=== PATIENT | female | born 1955 | race Hispanic/Latino ===

== ENCOUNTER 2019-03-29 22:16 | Emergency (ER) | payer OTHER ==
--- OUTSIDE RECORDS SUMMARY | 2019-03-29 22:17 | XMS REPORT | Clinical Summary ---
:1955 Author Organization [facility] Address [address] [place] [address] Care Team Providers Name Role Phone Patrick Cooley DO Primary Care Provider Allergies No Known Allergies Medications Medication Sig Dispensed Refills Start Date End Date Status pravastatin (PRAVACHOL) Take 40 mg by 0 Active 40 MG tablet mouth daily. gabapentin (NEURONTIN) Take 300 mg by 0 Active 300 mg capsule mouth 3 (three) times a day. lisinopril Take 40 mg by 0 Active (PRINIVIL,ZESTRIL) 40 mouth daily. mg tablet HYDROcodone-acetaminoph 0 11/02/2016 Active en (NORCO) 5-325 mg per tablet Hospital, Clinic, or Other Ordered Dose Route Frequency Start Date End Date Status Facility Administered Medication ibuprofen (ADVIL,MOTRIN) 600 mg oral once 11/03/2016 Active tablet 600 mgIndications: Varicose veins of leg with pain, right, Edema of right lower extremity Active Problems Problem Noted Date Varicose veins of leg with pain 11/09/2016 Edema of right lower extremity 11/09/2016 Family History Medical History Relation Name Comments Diabetes Mother Hypertension Mother Varicose Veins Mother Relation Name Status Comments Mother Social History Tobacco Use Types Packs/Day Years Used Date Never Smoker Alcohol Use Drinks/Week oz/Week Comments No Sex Assigned at Date Recorded Not on file Job Start Date Occupation Industry Not on file Not on file Not on file Travel History Travel Start Travel End No recent travel history available. Last Filed Vital Signs Not on file Plan of Treatment Health Maintenance Due Date Last Done Comments BREAST CANCER SCREENING 2003 COLONOSCOPY SCREENING 2003 SHINGLES VACCINES (#1) 2003 65+ PNEUMOCOCCAL VACCINE (1 of 2 - PCV13) 2018 INFLUENZA VACCINE 04/03/2019 Results Not on fileafter 03/28/2018 ) [place] [address] Advance Directives Patient has advance care planning documents on file. For more information, please contact:Zachery Rodriguez[address] [place] [phone]
--- OUTSIDE RECORDS SUMMARY | 2019-03-29 22:18 | XMS REPORT ---
:1955 [facility] Address [address] [place] [address] Care Team Providers Name Role Phone Unavailable Unavailable Unavailable Problems This patient has no known problems. Allergies, Adverse Reactions, Alerts This patient has no known allergies or adverse reactions. Medications This patient has no known medications.
[2019-03-29 22:53] LABS: Absolute Lymphocytes (CBC) 2.8 K/uL (0.7-4.9); Basophils % 0.3 % (0-1.3); Lymphocytes % 26.9 % (15.3-44.8); MPV 9.8 fL (7.6-11.3); RBC Red Blood Cell Count 4.51 M/uL (3.86-4.86)
[2019-03-29 23:12] LABS: BUN Blood Urea Nitrogen 18 mg/dL (7-18); Bicarbonate 28 mmol/L (21-32); Glucose Level 123 mg/dL (74-106); NT PRO-BNP 26 pg/mL (<125); Potassium 3.7 mmol/L (3.5-5.1); Sodium Level 142 mmol/L (136-145); Troponin (Emerg Dept Use Only) < 0.02 ng/mL (0.0-0.045)
--- NOTE | 2019-03-30 00:38 | ER ---
Nurse's Notes [facility] Name: Sudha Sanchez Age: 63 yrs Sex: Female : 1955 Arrival Date: 03/29/2019 Time: 22:16 Bed 7 Private MD: Diagnosis: Chest pain, unspecified Presentation: 03/29 22:25 Presenting complaint: Patient states: she is having non-radiating chest pain for bb several days the pain was intermittent but now does not seem to be going away. Pt denies SOB, nausea, and states pain is 7/10. Pt recently lost her March 07, 2019. Transition of care: patient was not received from another setting of care. Onset of symptoms was March 27, 2019. Risk Assessment: Do you want to hurt yourself or someone else? Patient reports no desire to harm self or others. Initial Sepsis Screen: Does the patient meet any 2 criteria? No. Patient's initial sepsis screen is negative. Does the patient have a suspected source of infection? No. Patient's initial sepsis screen is negative. Care prior to arrival: None. 22:25 Method Of Arrival: Ambulatory bb 22:25 Acuity: MINH 3 bb Triage Assessment: 22:27 General: Appears in no apparent distress. Behavior is calm, cooperative. Pain: bb Complains of pain in chest Pain does not radiate. Pain currently is 7 out of 10 on a pain scale. Pain began 2-3 days ago. Is continuous. Neuro: Level of Consciousness is awake, alert, obeys commands, Oriented to person, place, time, situation. Cardiovascular: Heart tones S1 S2 present Capillary refill < 3 seconds Patient's skin is warm and dry. Respiratory: Airway is patent Respiratory effort is even, unlabored, Respiratory pattern is regular, Breath sounds are clear bilaterally. GI: No signs and/or symptoms were reported involving the gastrointestinal system. Derm: Skin is dry, Skin is normal, Skin temperature is warm. Musculoskeletal: Circulation, motion, and sensation intact. Historical: - Allergies: : No Known Allergies; bb - Home Meds: : Unable to obtain [Active]; bb - PMHx: : Hypertension; bb - PSHx: : bunion surgery; bb - Immunization history:: Adult Immunizations up to date. - Social history:: Smoking status: Patient/guardian denies using tobacco. - Ebola Screening: : No symptoms or risks identified at this time. - Family history:: not pertinent. - Hospitalizations: : No recent hospitalization is reported. Screenin:54 Abuse screen: Denies threats or abuse. Denies injuries from another. Nutritional rr5 screening: No deficits noted. Tuberculosis screening: No symptoms or risk factors identified. Fall Risk IV access (20 points). Total Mendoza Fall Scale indicates No Risk (0-24 pts). Assessment: 22:30 General: Appears in no apparent distress. uncomfortable, Behavior is calm, cooperative, rr5 appropriate for age. Pain: Complains of pain in chest Pain does not radiate. Pain currently is 7 out of 10 on a pain scale. Quality of pain is described as aching, Pain began gradually, Is intermittent. Neuro: Level of Consciousness is awake, alert, obeys commands, Oriented to person, place, time, situation, Appropriate for age. Cardiovascular: Reports chest pain, Capillary refill < 3 seconds Patient's skin is warm and dry. Respiratory: Airway is patent Respiratory effort is even, unlabored, Respiratory pattern is regular, symmetrical. GI: No signs and/or symptoms were reported involving the gastrointestinal system. : No signs and/or symptoms were reported regarding the genitourinary system. EENT: No signs and/or symptoms were reported regarding the EENT system. Derm: Skin is intact, Skin temperature is warm. Musculoskeletal: Circulation, motion, and sensation intact. Capillary refill < 3 seconds. 23:52 Reassessment: No changes from previously documented assessment. Patient is alert, bb oriented x 3, equal unlabored respirations, skin warm/dry/pink. pt states pain is a little less now 6/10, IV site intact, family at bedside. 03/30 00:40 Reassessment: Patient is alert, oriented x 3, equal unlabored respirations, skin bb warm/dry/pink. pt and family verbalized understanding of and agree to plan of care discharge instructions given pt ambulated with steady gait to exit accompanied by family. Vital Signs: 03/29 22:27 BP 119 / 89; Pulse 87; Resp 18 S; Temp 97.7(O); Pulse Ox 96% on R/A; Weight 83.91 kg bb (R); Height 5 ft. 0 in. (152.40 cm) (R); Pain 7/10; 23:53 BP 122 / 62; Pulse 77; Resp 16 S; Pulse Ox 97% on R/A; bb 03/30 00:41 BP 145 / 81; Pulse 83; Resp 21 S; Temp 98(O); Pulse Ox 96% on R/A; bb 03/29 22:27 Body Mass Index 36.13 (83.91 kg, 152.40 cm) bb ED Course: 03/29 22:16 Patient arrived in ED. rg4 22:23 Mike Narvaez MD is Attending Physician. rn 22:27 Triage completed. bb 22:27 Arm band placed on Patient placed in an exam room, on a stretcher, on quality assurance monitor body, bb on pulse oximetry. EKG completed in triage. Results shown to MD. Family accompanied patient. 22:30 Patient has correct armband on for positive identification. monitoring tech on. Pulse bb ox on. NIBP on. 22:30 Patient maintains SpO2 saturation greater than 95% on room air. bb 22:35 Inserted saline lock: 20 gauge in right forearm, using aseptic technique. Blood rr5 collected. 22:44 Hattie Gardner, RN is Primary Nurse. bb 22:50 XRAY Chest (1 view) In Process Unspecified. EDMO 03/30 00:42 No provider procedures requiring assistance completed. IV discontinued, intact, bb bleeding controlled, No redness/swelling at site. Pressure dressing applied. Administered Medications: No medications were administered Outcome: 00:33 Discharge ordered by . rn 00:42 Discharged to home ambulatory, with family. bb 00:42 Condition: stable 00:42 Discharge instructions given to patient, family, Instructed on discharge instructions, follow up and referral plans. Demonstrated understanding of instructions, follow-up care. 00:43 Patient left the ED. bb Signatures: Dispatcher [employer] EDMO Hattie Gardner, RN Mike Rojas MD MD rn Garcia, Rubi rg4 Vishal Loera RN RN rr5
--- NOTE | 2019-03-30 00:39 | EDPHYS ---
Physician Documentation [facility] Name: Sudha Sanchez Age: 63 yrs Sex: Female : 1955 Arrival Date: 03/29/2019 Time: 22:16 Bed 7 Private MD: ED Physician Mike Narvaez HPI: 03/29 23:20 This 63 yrs old Female presents to ER via Ambulatory with complaints of Chest rn Pain. 23:20 The patient or guardian reports chest pain that is located primarily in the substernal rn area. Onset: 2 week(s) ago. The pain does not radiate. Associated signs and symptoms: The patient has no apparent associated signs or symptoms, Pertinent negatives: abdominal pain, diaphoresis, dizziness, headache, lightheadedness, nausea, near syncope, palpitations, shortness of breath, syncope, vomiting. The chest pain is described as dull. Duration: The patient or guardian reports multiple episodes, that are intermittent, the episodes last approximately 2 minute(s). Modifying factors: The symptoms are alleviated by nothing. the symptoms are aggravated by nothing. Severity of pain: At its worst the pain was mild in the emergency department the pain is unchanged. The patient has not experienced similar symptoms in the past. Reports has been having chest pain since this month, 2 weeks onset, intermittent, increase in frequency, no fever/chills/sob, no radiation, no abd pain. NO vomiting/diaphoresis. . Historical: - Allergies: 22:27 No Known Allergies; bb - Home Meds: 22:27 Unable to obtain [Active]; bb - PMHx: 22:27 Hypertension; bb - PSHx: 22:27 bunion surgery; bb - Immunization history:: Adult Immunizations up to date. - Social history:: Smoking status: Patient/guardian denies using tobacco. - Ebola Screening: : No symptoms or risks identified at this time. - Family history:: not pertinent. - Hospitalizations: : No recent hospitalization is reported. ROS: 23:20 Constitutional: Negative for fever, chills, and weight loss, Eyes: Negative for injury, rn pain, redness, and discharge, Neck: Negative for injury, pain, and swelling, Cardiovascular: Negative for palpitations, and edema, Respiratory: Negative for shortness of breath, cough, wheezing, and pleuritic chest pain, Abdomen/GI: Negative for abdominal pain, nausea, vomiting, diarrhea, and constipation, MS/Extremity: Negative for injury and deformity, Skin: Negative for injury, rash, and discoloration, Neuro: Negative for headache, weakness, numbness, tingling, and seizure. Exam: 23:20 Constitutional: This is a well developed, well nourished patient who is awake, alert, rn and in no acute distress. Flat affect. Head/Face: Normocephalic, atraumatic. Eyes: Pupils equal round and reactive to light, extra-ocular motions intact. Lids and lashes normal. Conjunctiva and sclera are non-icteric and not injected. Cornea within normal limits. Periorbital areas with no swelling, redness, or edema. Cardiovascular: Regular rate and rhythm. No pulse deficits. Respiratory: Lungs have equal breath sounds bilaterally, clear to auscultation. No increased work of breathing, no retractions or nasal flaring. Abdomen/GI: soft, non-tender MS/ Extremity: Pulses equal, no cyanosis. Neurovascular intact. Full, normal range of motion. Equal circumference. Neuro: Awake and alert, GCS 15, oriented to person, place, time, and situation. Cranial nerves II-XII grossly intact. Motor strength 5/5 in all extremities. Sensory grossly intact. Cerebellar exam normal. Vital Signs: 22:27 BP 119 / 89; Pulse 87; Resp 18 S; Temp 97.7(O); Pulse Ox 96% on R/A; Weight 83.91 kg bb (R); Height 5 ft. 0 in. (152.40 cm) (R); Pain 7/10; 23:53 BP 122 / 62; Pulse 77; Resp 16 S; Pulse Ox 97% on R/A; bb 03/30 00:41 BP 145 / 81; Pulse 83; Resp 21 S; Temp 98(O); Pulse Ox 96% on R/A; bb 03/29 22:27 Body Mass Index 36.13 (83.91 kg, 152.40 cm) bb MDM: 03/29 22:24 Patient medically screened. rn 03/30 00:31 Differential diagnosis: acute myocardial infarction, acute pericarditis, anxiety, rn coronary artery disease esophagitis, gastritis, gastroesophageal reflux disease (GERD). Data reviewed: vital signs, nurses notes, lab test result(s), EKG, radiologic studies, plain films, and as a result, I will discharge patient. Counseling: I had a detailed discussion with the patient and/or guardian regarding: the historical points, exam findings, and any diagnostic results supporting the discharge/admit diagnosis, lab results, radiology results, the need for outpatient follow up, to return to the emergency department if symptoms worsen or persist or if there are any questions or concerns that arise at home. Refusal of service: The patient/guardian displays adequate decision making capability and despite a detailed discussion of alternatives, benefits, risks, and consequences refuses: Admission to the hospital for further work-up and treatment. ED course: Discussed with patient her normal results of bloodwork, neg trop, no acute findings on w/u today. Offered her admission for stress test and echo, patient declines, has pcp f/u on Sunday and she feels since began after of is more anxiety. Denies palpitations. Requests to go home. Return precautions given and understood.. 03/29 22:30 Order name: Basic Metabolic Panel; Complete Time: 23:19 rn 03/29 22:30 Order name: CBC with Diff; Complete Time: 23:19 03/29 22:30 Order name: NT PRO-BNP; Complete Time: 23:19 03/29 22:30 Order name: Troponin (emerg Dept Use Only); Complete Time: 23:19 03/29 22:30 Order name: XRAY Chest (1 view) 03/29 22:30 Order name: EKG; Complete Time: 22:32 03/29 22:30 Order name: Cardiac monitoring; Complete Time: 22:30 03/29 22:30 Order name: EKG - Nurse/Tech; Complete Time: 22:30 rn 03/29 22:30 Order name: IV Saline Lock; Complete Time: 22:44 03/29 22:30 Order name: Labs collected and sent; Complete Time: :44 03/29 22:30 Order name: O2 Per Protocol; Complete Time: :44 03/29 22:30 Order name: O2 Sat Monitoring; Complete Time: 22:44 rn Administered Medications: No medications were administered Disposition: 03/30/19 00:33 Discharged to Home. Impression: Chest pain, unspecified. - Condition is Stable. - Discharge Instructions: Nonspecific Chest Pain, Pain Without a Known Cause. - Medication Reconciliation Form, Thank You Letter, Antibiotic Education, Prescription Opioid Use form. - Follow up: Private Physician; When: As needed; Reason: Recheck today's complaints, Re-evaluation by your physician. - Problem is an ongoing problem. - Symptoms have improved. Signatures: Dispatcher [employer] Hattie Coelho RN RN bb Mike Narvaez MD MD internal medicine nurse practitioner: (The following items were deleted from the chart) 00:43 00:33 03/30/2019 00:33 Discharged to Home. Impression: Chest pain, unspecified. bb Condition is Stable. Forms are Medication Reconciliation Form, Thank You Letter, Antibiotic Education, Prescription Opioid Use. Follow up: Private Physician; When: As needed; Reason: Recheck today's complaints, Re-evaluation by your physician. Problem is an ongoing problem. Symptoms have improved. rn
[2019-03-30 01:47] VITALS: BP 145/81; TEMP 98; O2SAT 96
--- NOTE | 2019-03-30 06:28 | EKG ---
Test Date: 2019-03-29 Test Time: 22:29:15 Heavy Duty Press Operator: COLTEN MEASUREMENT RESULTS: Intervals: Rate: 83 NJ: 158 QRSD: 70 QT: 354 QTc: 415 [place]: P: 54 NJ: 158 QRS: 50 T: 79 INTERPRETIVE STATEMENTS: Normal sinus rhythm Nonspecific T wave abnormality Abnormal ECG No previous ECG available for comparison Electronically Signed On 03-30-19 06:27:29 CDT by Sanford Ley
--- NOTE | 2019-03-30 08:07 | RAD REPORT ---
EXAM DESCRIPTION: RAD - Chest Single View - 03/29/2019 10:49 pm CLINICAL HISTORY: Chest pain COMPARISON: None. TECHNIQUE: AP portable chest image was obtained 2249 hours . FINDINGS: Lungs are clear. Heart and vasculature are normal. No measurable pleural effusion and no p neumothorax. No acute bone findings seen. Mild left-side and moderate right-sided AC joint degenerati ve change. No acute aortic findings suspected. IMPRESSION: No acute cardiopulmonary process.
== END 2019-03-30 00:43 | disposition home or self-care (01) ==
LOC: ER 22:16
DX: R07.9 Chest pain, unspecified (principal); I10 Essential (primary) hypertension
CPT/HCPCS: 36415; 71045; 80048; 83880; 84484; 85025; 93005; 99285

== ENCOUNTER 2019-06-18 13:00 | Emergency (ER) | payer OTHER ==
--- NOTE | 2019-06-18 13:42 | ER ---
Nurse's Notes [facility] Name: Sudha Sanchez Age: 63 yrs Sex: Female : 1955 Arrival Date: 06/18/2019 Time: 13:04 Bed Waiting Private MD: Diagnosis: Presentation: 06/18 13:34 Presenting complaint: Patient states: Via translation # [id number]: "I'm having lots of aj1 cough and a bunch of phlegm, this has been going on for 6 months." Reports that she had a X-Ray done,f and they called and said they had results at the [facility], but she was already here so she isn't sure what the result is. States that she has not tried to take any cough medications at home. During triage patient states that she has decided that she would rather follow up at the clinic and she is leaving. Transition of care: patient was not received from another setting of care. Onset of symptoms was June 18, 2019. Risk Assessment: Do you want to hurt yourself or someone else? Patient reports no desire to harm self or others. Initial Sepsis Screen: Does the patient meet any 2 criteria? No. Patient's initial sepsis screen is negative. Does the patient have a suspected source of infection? Yes: Productive cough/pneumonia. Care prior to arrival: None. 13:34 Method Of Arrival: Ambulatory aj1 13:34 Acuity: MINH 4 aj1 Vital Signs: 13:40 BP 143 / 58; Pulse 72; Resp 18; Temp 97.8; Pulse Ox 100% on R/A; aj1 ED Course: 13:04 Patient arrived in ED. mr 13:40 Triage completed. aj1 Administered Medications: No medications were administered Outcome: 13:40 Eloped from waiting room. aj1 13:41 Patient left the ED. aj1 Signatures: Farnaz Patel RN RN aj1 Verito Gasca mr
[2019-06-18 13:45] VITALS: BP 143/58; TEMP 97.8; O2SAT 100
== END 2019-06-18 13:41 | disposition left against medical advice (07) ==
LOC: ER 13:00
DX: Z02.9 Encounter for administrative examinations, unspecified (principal)
CPT/HCPCS: 99281

== ENCOUNTER 2021-08-25 16:24 | Emergency (ER) | payer OTHER ==
--- OUTSIDE RECORDS SUMMARY | 2021-08-25 16:29 | XMS REPORT | Continuity of Care Document ---
:1955 Author Organization [facility] t Address [address] [place] [address] Care Team Providers Name Role Phone ENRIQUE ANN LINNETTE Primary Care Physician Unavailable Soledad ANDERSON Attending Clinician Unavailable Tomasa Avilez Attending Clinician Tomasa EASTON Attending Clinician Unavailable SARAH Attending Clinician Unavailable Tesha Attending Clinician Sarah ANDERS Attending Clinician Macey ANDERS Attending Clinician LORENZO Attending Clinician Unavailable Anupama REYNA Attending Clinician Unavailable Doctor Unassigned, Name Attending Clinician Unavailable Lorenzo IBRAHIM Attending Clinician Anupama Reyna MD Attending Clinician Tl ANDERS Attending Clinician Payers Payer Name Policy Type Policy Number Effective Date Expiration Date Tomasa jules [employer] [id number] 2020spring 00:00:00 MEDICARE PART A [id number] 2018 \\T\\ B 00:00:00 Problems Condition Condition Condition Status Onset Resolution Last Treating Co mments Source Name Details Category Date Date Treatment Clinician Date Depression Depression Disease Active 2018-09 U nivers 09-17 ity of 00:00: [place] 00 Medical Branch Osteopenia Osteopenia Disease Active U nivers 8-09 ity of 00:00: [place] [facility] Morbid Morbid Disease Active Univers obesity obesity 8-05 ity of with body with body 00:00: [facility] s mass index mass index 00 Me dical of of Branch 40.0-49.9 40.0-49.9 Chronic Chronic Disease Active Univers allergic allergic 4-25 ity of rhinitis rhinitis 00:00: [place] [facility] Dry eyes Dry eyes Disease Active Unive rs 3-10 ity of 00:: [place] [facility] Abnormal Abnormal Disease Active Unive rs EKG EKG 3-06 ity of 00:00: [place] [facility] Microscopi Microscopi Disease Active U nivers c c 3- ity of hematuria hematuria 00:00: [facility] Medical Branch Elevated Elevated Disease Active Unive rs sed rate sed rate 3- ity of 00:: [place] [facility] Elevated Elevated Disease Active Unive rs C-reactive C-reactive 3- it y of protein protein 00:00: [place] (CRP) (CRP) 00 Medical Branch Proximal Proximal Disease Active Unive rs muscle muscle 3- ity of weakness weakness 00:00: [place] [facility] Arthralgia Arthralgia Disease Active U nivers of of 3- ity of multiple multiple 00:00: [place] joints joints 00 Medical Branch Vitamin D Vitamin D Disease Active Uni vers deficiency deficiency 3- it y of 00:00: [place] [facility] Type 2 Type 2 Disease Active Univers diabetes diabetes 3- ity of mellitus mellitus 00:00: [place] without without 00 Medical complicati complicati Br anch on, on, without without long-term long-term current current use of use of insulin insulin Hyperchole Hyperchole Disease Active U nivers sterolemia sterolemia 3- it y of 00:00: [place] [facility] Allergies, Adverse Reactions, Alerts Allergy Allergy Status Severity Reaction(s) Onset Inactive Treating Comm ents Source Name Type Date Date Clinician NO KNOWN Drug Active Univers ALLERGIE Class ity of [facility] Social History Social Habit Start Date Stop Date Quantity Comments Source Exposure to Not sure [facility] SARS-CoV-2 [place] [facility] (event) Branch Tobacco use and 2021-02-25 2021-02-25 Never used Universit y of exposure 00:00:00 00:00:00 [facility] Branch Alcohol intake 2021-02-25 2021-02-25 Current University 00:00:00 00:00:00 non-drinker of [facility] alcohol Branch (finding) Sex [birth year] Universit y of 00:00:00 00:00:00 [facility] Branch Smoking Status Start Date Stop Date Source Never smoker [facility] Branch Medications Ordered Filled Start Stop Current Ordering Indication Dosage Frequency Signature Comments Components Source Medication Medication Date Date Medication? Clinician (SIG) Name Name triamcinolo 2020- No [id number] 40mg Univers ne 02-16 ity of acetonide 21:45: 20:36 [place] (KENALOG) 00 :00 Medical injection Branch 40 mg triamcinolo 2020- No [id number] 40mg 40 mg, Univers ne 02-16 Intra-herb ity of acetonide 21:45: 20:36 [place], [place] (KENALOG) 00 :00 ONCE, 1 Medical injection dose, Wed Branc h 40 mg 02/16/21 at 1645, Routine triamcinolo 2020- No [id number] 40mg Univers ne 02-16 ity of acetonide 21:45: 20:36 [place] (KENALOG) 00 :00 Medical injection Branch 40 mg triamcinolo 2020- No [id number] 40mg 40 mg, Univers ne 02-16 Intra-herb ity of acetonide 21:45: 20:36 [place], [place] (KENALOG) 00 :00 ONCE, 1 Medical injection dose, Wed Branc h 40 mg 02/16/21 at 1645, Routine tretinoin Yes [id number] Apply to Univers 0.025 % 6-16 affected ity of cream 00:00: area(s) at [place] 00 bedtime. Medical Branch tretinoin Yes [id number] Apply to Univers 0.025 % 6-16 affected ity of cream 00:00: area(s) at [place] 00 bedtime. Medical Branch tretinoin Yes [id number] Apply to Univers 0.025 % 6-16 affected ity of cream 00:00: area(s) at [place] bedtime. Medical Branch tretinoin Yes [id number] Apply to Univers 0.025 % 6-16 affected ity of cream 00:00: area(s) at [place] bedtime. Medical Branch tretinoin Yes [id number] Apply to Univers 0.025 % 6-16 affected ity of cream 00:00: area(s) at [place] bedtime. Medical Branch tretinoin Yes [id number] Apply to Univers 0.025 % 6-16 affected ity of cream 00:00: area(s) at [place] bedtime. Medical Branch tretinoin Yes [id number] Apply to Univers 0.025 % 6-16 affected ity of cream 00:00: area(s) at [place] [address] bedtime. Medical Branch tretinoin Yes [id number] Apply to Univers 0.025 % 6-16 affected ity of cream 00:00: area(s) at [place] [address] bedtime. Medical Branch Blood-Gluco 2018-09 Yes [id number] Check Univers se Meter 1-15 glucose ity of Kit 00:00: once a day [place] 00 before Medical breakfast, Branch goal is less than 130; Diagnosis code E11.9 blood sugar 2018-09 Yes [id number] Check Univers diagnostic 1-15 glucose ity of (BLOOD 00:00: once a day [place] GLUCOSE 00 before Medical TEST) strip breakfast, Br anch goal is less than 130; Diagnosis code E11.9 Lancets 2018-09 Yes [id number] Check Univ ers Misc 1-15 glucose ity of 00:00: once a day [place] 00 before Medical breakfast, Branch goal is less than 130; Diagnosis code E11.9 ciclopirox 2018-09 Yes [id number] Apply to Univers 8 % 1-15 area(s) at ity of solution 00:00: bedtime. [place] 00 Apply to Medical Nails. Branch rosuvastati 2018-09 Yes [id number] 10mg Take 1 Univers n 10 mg 1-15 tablet by ity of tablet 00:00: mouth at [place] [address] bedtime. Medical Branch traZODone 2018-09 Yes [id number] 25mg Take 0.5-1 Univers 50 mg 1-15 tablets by ity of tablet 00:00: mouth at [place] 00 bedtime. Medical Branch Blood-Gluco 2018-09 Yes [id number] Check Univers se Meter 1-15 glucose ity of Kit 00:00: once a day [place] 00 before Medical breakfast, Branch goal is less than 130; Diagnosis code E11.9 blood sugar 2018-09 Yes [id number] Check Univers diagnostic 1-15 glucose ity of (BLOOD 00:00: once a day [place] GLUCOSE 00 before Medical TEST) strip breakfast, Br anch goal is less than 130; Diagnosis code E11.9 Lancets 2018-09 Yes [id number] Check Univ ers Misc 1-15 glucose ity of 00:00: once a day [place] before Medical breakfast, Branch goal is less than 130; Diagnosis code E11.9 ciclopirox 2018-09 Yes [id number] Apply to Univers 8 % 1-15 area(s) at ity of solution 00:00: bedtime. [place] [address] Apply to Medical Nails. Branch rosuvastati 2018-09 Yes [id number] 10mg Take 1 Univers n 10 mg 1-15 tablet by ity of tablet 00:00: mouth at [place] [address] bedtime. Medical Branch traZODone 2018-09 Yes [id number] 25mg Take 0.5-1 Univers 50 mg 1-15 tablets by ity of tablet 00:00: mouth at [place] [address] bedtime. Medical Branch Blood-Gluco 2018-09 Yes [id number] Check Univers se Meter 1-15 glucose ity of Kit 00:00: once a day [place] before Medical breakfast, Branch goal is less than 130; Diagnosis code E11.9 blood sugar 2018-09 Yes [id number] Check Univers diagnostic 1-15 glucose ity of (BLOOD 00:00: once a day [place] GLUCOSE 00 before Medical TEST) strip breakfast, Br anch goal is less than 130; Diagnosis code E11.9 Lancets 2018-09 Yes [id number] Check Univ ers Misc 1-15 glucose ity of 00:00: once a day [place] 00 before Medical breakfast, Branch goal is less than 130; Diagnosis code E11.9 ciclopirox 2018-09 Yes [id number] Apply to Univers 8 % 1-15 area(s) at ity of solution 00:00: bedtime. [place] 00 Apply to Medical Nails. Branch rosuvastati 2018-09 Yes [id number] 10mg Take 1 Univers n 10 mg 1-15 tablet by ity of tablet 00:00: mouth at [place] [address] bedtime. Medical Branch traZODone 2018-09 Yes [id number] 25mg Take 0.5-1 Univers 50 mg 1-15 tablets by ity of tablet 00:00: mouth at [place] bedtime. Medical Branch Blood-Gluco 2018- Yes [id number] Check Univers se Meter 1-15 glucose ity of Kit 00:00: once a day [place] 00 before Medical breakfast, Branch goal is less than 130; Diagnosis code E11.9 blood sugar 2018-09 Yes [id number] Check Univers diagnostic 1-15 glucose ity of (BLOOD 00:00: once a day [place] GLUCOSE 00 before Medical TEST) strip breakfast, Br anch goal is less than 130; Diagnosis code E11.9 Lancets 2018-09 Yes [id number] Check Univ ers Misc 1-15 glucose ity of 00:00: once a day [place] before Medical breakfast, Branch goal is less than 130; Diagnosis code E11.9 ciclopirox 2018- Yes [id number] Apply to Univers 8 % 1-15 area(s) at ity of solution 00:00: bedtime. Apply to Medical Nails. Branch rosuvastati 2018-09 Yes [id number] 10mg Take 1 Univers n 10 mg 1-15 tablet by ity of tablet 00:00: mouth at [place] [address] bedtime. Medical Branch traZODone 2018-09 Yes [id number] 25mg Take 0.5-1 Univers 50 mg 1-15 tablets by ity of tablet 00:00: mouth at [place] [address] bedtime. Medical Branch Blood-Gluco 2018-09 Yes [id number] Check Univers se Meter 1-15 glucose ity of Kit 00:00: once a day [place] 00 before Medical breakfast, Branch goal is less than 130; Diagnosis code E11.9 blood sugar 2018-09 Yes [id number] Check Univers diagnostic 1-15 glucose ity of (BLOOD 00:00: once a day [place] GLUCOSE 00 before Medical TEST) strip breakfast, Br anch goal is less than 130; Diagnosis code E11.9 Lancets 2018- Yes [id number] Check Univ ers Misc 1-15 glucose ity of 00:00: once a day [place] 00 before Medical breakfast, Branch goal is less than 130; Diagnosis code E11.9 ciclopirox 2018-09 Yes [id number] Apply to Univers 8 % 1-15 area(s) at ity of solution 00:00: bedtime. [place] 00 Apply to Medical Nails. Branch rosuvastati 2018-09 Yes [id number] 10mg Take 1 Univers n 10 mg 1-15 tablet by ity of tablet 00:00: mouth at [place] 00 bedtime. Medical Branch traZODone 2018-09 Yes [id number] 25mg Take 0.5-1 Univers 50 mg 1-15 tablets by ity of tablet 00:00: mouth at [place] 00 bedtime. Medical Branch Blood-Gluco 2018-09 Yes [id number] Check Univers se Meter 1-15 glucose ity of Kit 00:00: once a day [place] before Medical breakfast, Branch goal is less than 130; Diagnosis code E11.9 blood sugar 2018-09 Yes [id number] Check Univers diagnostic 1-15 glucose ity of (BLOOD 00:00: once a day [place] GLUCOSE 00 before Medical TEST) strip breakfast, Br anch goal is less than 130; Diagnosis code E11.9 Lancets 2018-09 Yes [id number] Check Univ ers Misc 1-15 glucose ity of 00:00: once a day [place] before Medical breakfast, Branch goal is less than 130; Diagnosis code E11.9 ciclopirox 2018-09 Yes [id number] Apply to Univers 8 % 1-15 area(s) at ity of solution 00:00: bedtime. [place] 00 Apply to Medical Nails. Branch rosuvastati 2018-09 Yes [id number] 10mg Take 1 Univers n 10 mg 1-15 tablet by ity of tablet 00:00: mouth at [place] 00 bedtime. Medical Branch traZODone 2018-09 Yes [id number] 25mg Take 0.5-1 Univers 50 mg 1-15 tablets by ity of tablet 00:00: mouth at [place] 00 bedtime. Medical Branch Blood-Gluco 2018-09 Yes [id number] Check Univers se Meter 1-15 glucose ity of Kit 00:00: once a day [place] 00 before Medical breakfast, Branch goal is less than 130; Diagnosis code E11.9 blood sugar 2018-09 Yes [id number] Check Univers diagnostic 1-15 glucose ity of (BLOOD 00:00: once a day [place] GLUCOSE 00 before Medical TEST) strip breakfast, Br anch goal is less than 130; Diagnosis code E11.9 Lancets 2018-09 Yes [id number] Check Univ ers Misc 1-15 glucose ity of 00:00: once a day [place] 00 before Medical breakfast, Branch goal is less than 130; Diagnosis code E11.9 ciclopirox 2018-09 Yes [id number] Apply to Univers 8 % 1-15 area(s) at ity of solution 00:00: bedtime. Apply to Medical Nails. Branch rosuvastati 2018-09 Yes [id number] 10mg Take 1 Univers n 10 mg 1-15 tablet by ity of tablet 00:00: mouth at [place] 00 bedtime. Medical Branch traZODone 2018-09 Yes [id number] 25mg Take 0.5-1 Univers 50 mg 1-15 tablets by ity of tablet 00:00: mouth at [place] [address] bedtime. Medical Branch Blood-Gluco 2018-09 Yes [id number] Check Univers se Meter 1-15 glucose ity of Kit 00:00: once a day [place] 00 before Medical breakfast, Branch goal is less than 130; Diagnosis code E11.9 blood sugar 2018-09 Yes [id number] Check Univers diagnostic 1-15 glucose ity of (BLOOD 00:00: once a day [place] GLUCOSE 00 before Medical TEST) strip breakfast, Br anch goal is less than 130; Diagnosis code E11.9 Lancets 2018-09 Yes [id number] Check Univ ers Misc 1-15 glucose ity of 00:00: once a day [place] before Medical breakfast, Branch goal is less than 130; Diagnosis code E11.9 ciclopirox 2018-09 Yes [id number] Apply to Univers 8 % 1-15 area(s) at ity of solution 00:00: bedtime. Apply to Medical Nails. Branch rosuvastati 2018-09 Yes [id number] 10mg Take 1 Univers n 10 mg 1-15 tablet by ity of tablet 00:00: mouth at [place] [address] bedtime. Medical Branch traZODone 2018-09 Yes [id number] 25mg Take 0.5-1 Univers 50 mg 1-15 tablets by ity of tablet 00:00: mouth at [place] [address] bedtime. Medical Branch aspirin 81 Yes [id number] 81mg Take 1 Univers mg EC 7-29 tablet by ity of tablet 00:00: mouth [place] 00 daily. Medical Take with [place] food. rosuvastati Yes [id number] 10mg Take 1 Univers n 10 mg 7-29 tablet by ity of tablet 00:00: mouth at [place] 00 bedtime. Medical Branch traZODONE Yes [id number] 25mg Take 0.5-1 Univers 50 mg 7-29 tablets by ity of tablet 00:00: mouth at [place] 00 bedtime. Medical Branch aspirin 81 Yes [id number] 81mg Take 1 Univers mg EC 7-29 tablet by ity of tablet 00:00: mouth [place] 00 daily. Medical Take with [place] food. rosuvastati Yes [id number] 10mg Take 1 Univers n 10 mg 7-29 tablet by ity of tablet 00:00: mouth at [place] 00 bedtime. Medical Branch traZODONE Yes [id number] 25mg Take 0.5-1 Univers 50 mg 7-29 tablets by ity of tablet 00:00: mouth at [place] 00 bedtime. Medical [place] aspirin 81 Yes [id number] 81mg Take 1 Univers mg EC 7-29 tablet by ity of tablet 00:00: mouth [place] 00 daily. Medical Take with [place] food. rosuvastati Yes [id number] 10mg Take 1 Univers n 10 mg 7-29 tablet by ity of tablet 00:00: mouth at [place] 00 bedtime. Medical Branch traZODONE Yes [id number] 25mg Take 0.5-1 Univers 50 mg 7-29 tablets by ity of tablet 00:00: mouth at [place] 00 bedtime. Medical [place] aspirin 81 Yes [id number] 81mg Take 1 Univers mg EC 7-29 tablet by ity of tablet 00:00: mouth [place] 00 daily. Medical Take with [place] food. rosuvastati Yes [id number] 10mg Take 1 Univers n 10 mg 7-29 tablet by ity of tablet 00:00: mouth at [place] 00 bedtime. [facility] Branch traZODONE Yes [id number] 25mg Take 0.5-1 Univers 50 mg 7-29 tablets by ity of tablet 00:00: mouth at [place] 00 bedtime. Medical Branch aspirin 81 Yes [id number] 81mg Take 1 Univers mg EC 7-29 tablet by ity of tablet 00:00: mouth [place] 00 daily. Medical Take with [place] food. rosuvastati Yes [id number] 10mg Take 1 Univers n 10 mg 7-29 tablet by ity of tablet 00:00: mouth at [place] 00 bedtime. Medical Branch traZODONE Yes [id number] 25mg Take 0.5-1 Univers 50 mg 7-29 tablets by ity of tablet 00:00: mouth at [place] 00 bedtime. Medical Branch aspirin 81 Yes [id number] 81mg Take 1 Univers mg EC 7-29 tablet by ity of tablet 00:00: mouth [place] 00 daily. Medical Take with [place] food. rosuvastati Yes [id number] 10mg Take 1 Univers n 10 mg 7-29 tablet by ity of tablet 00:00: mouth at [place] 00 bedtime. Medical Branch traZODONE Yes [id number] 25mg Take 0.5-1 Univers 50 mg 7-29 tablets by ity of tablet 00:00: mouth at [place] 00 bedtime. Medical Branch aspirin 81 Yes [id number] 81mg Take 1 Univers mg EC 7-29 tablet by ity of tablet 00:00: mouth [place] 00 daily. Medical Take with [place] food. rosuvastati Yes [id number] 10mg Take 1 Univers n 10 mg 7-29 tablet by ity of tablet 00:00: mouth at [place] 00 bedtime. Medical Branch traZODONE Yes [id number] 25mg Take 0.5-1 Univers 50 mg 7-29 tablets by ity of tablet 00:00: mouth at [place] 00 bedtime. Medical Branch aspirin 81 Yes [id number] 81mg Take 1 Univers mg EC 7-29 tablet by ity of tablet 00:00: mouth [place] 00 daily. Medical Take with [place] food. rosuvastati Yes [id number] 10mg Take 1 Univers n 10 mg 7-29 tablet by ity of tablet 00:00: mouth at [place] 00 bedtime. Medical Branch traZODONE Yes [id number] 25mg Take 0.5-1 Univers 50 mg 7-29 tablets by ity of tablet 00:00: mouth at [place] 00 bedtime. Medical Branch aspirin 81 2019-0 Yes [id number] 81mg Take 1 Univers mg EC 7-29 tablet by ity of tablet 00:00: mouth [place] 00 daily. Medical Take with Branch food. rosuvastati 2019-0 Yes [id number] 10mg Take 1 Univers n 10 mg 7-29 tablet by ity of tablet 00:00: mouth at [place] 00 bedtime. Medical Branch traZODONE 2019-0 Yes [id number] 25mg Take 0.5-1 Univers 50 mg 7-29 tablets by ity of tablet 00:00: mouth at [place] 00 bedtime. Medical Branch aspirin 81 2019-0 Yes [id number] 81mg Take 1 Univers mg EC 7-29 tablet by ity of tablet 00:00: mouth [place] 00 daily. Medical Take with Branch food. rosuvastati 2019-0 Yes [id number] 10mg Take 1 Univers n 10 mg 7-29 tablet by ity of tablet 00:00: mouth at [place] 00 bedtime. Medical Branch traZODONE 2019-0 Yes [id number] 25mg Take 0.5-1 Univers 50 mg 7-29 tablets by ity of tablet 00:00: mouth at [place] 00 bedtime. Medical Branch aspirin 81 2019-0 Yes [id number] 81mg Take 1 Univers mg EC 7-29 tablet by ity of tablet 00:00: mouth [place] 00 daily. Medical Take with Branch food. aspirin 81 2019-0 Yes [id number] 81mg Take 1 Univers mg EC 7-29 tablet by ity of tablet 00:00: mouth [place] 00 daily. Medical Take with Branch food. aspirin 81 2019-0 Yes [id number] 81mg Take 1 Univers mg EC 7-29 tablet by ity of tablet 00:00: mouth [place] 00 daily. Medical Take with Branch food. aspirin 81 2019-0 Yes [id number] 81mg Take 1 Univers mg EC 7-29 tablet by ity of tablet 00:00: mouth [place] 00 daily. Medical Take with Branch food. aspirin 81 2019-0 Yes [id number] 81mg Take 1 Univers mg EC 7-29 tablet by ity of tablet 00:00: mouth [place] 00 daily. Medical Take with Branch food. aspirin 81 2019-0 Yes [id number] 81mg Take 1 Univers mg EC 7-29 tablet by ity of tablet 00:00: mouth [place] 00 daily. Medical Take with Branch food. aspirin 81 2019-0 Yes [id number] 81mg Take 1 Univers mg EC 7-29 tablet by ity of tablet 00:00: mouth [place] 00 daily. Medical Take with Branch food. aspirin 81 2019-0 Yes [id number] 81mg Take 1 Univers mg EC 7-29 tablet by ity of tablet 00:00: mouth [place] 00 daily. Medical Take with Branch food. aspirin 81 2019-0 Yes [id number] 81mg Take 1 Univers mg EC 7-29 tablet by ity of tablet 00:00: mouth [place] 00 daily. Medical Take with Branch food. rosuvastati 2019-0 Yes [id number] 10mg Take 1 Univers n 10 mg 7-29 tablet by ity of tablet 00:00: mouth at [place] 00 bedtime. Medical Branch traZODONE 2019-0 Yes [id number] 25mg Take 0.5-1 Univers 50 mg 7-29 tablets by ity of tablet 00:00: mouth at [place] 00 bedtime. Medical Branch Cholecalcif 2019-0 Yes [id number] 1000U Take 1 Univers justin, 5-01 capsule by ity of Vitamin D3, 00:00: mouth [place] (VITAMIN 00 daily. Medical D3) 1,000 Branch unit capsule Cholecalcif 2019-0 Yes [id number] 1000U Take 1 Univers justin, 5-01 capsule by ity of Vitamin D3, 00:00: mouth [place] (VITAMIN 00 daily. Medical D3) 1,000 Branch unit capsule Cholecalcif 2019-0 Yes [id number] 1000U Take 1 Univers justin, 5-01 capsule by ity of Vitamin D3, 00:00: mouth [place] (VITAMIN 00 daily. Medical D3) 1,000 Branch unit capsule Cholecalcif 2019-0 Yes [id number] 1000U Take 1 Univers justin, 5-01 capsule by ity of Vitamin D3, 00:00: mouth [place] (VITAMIN 00 daily. Medical D3) 1,000 Branch unit capsule Cholecalcif 2019-0 Yes [id number] 1000U Take 1 Univers justin, 5-01 capsule by ity of Vitamin D3, 00:00: mouth [place] (VITAMIN 00 daily. Medical D3) 1,000 Branch unit capsule Cholecalcif 2019-0 Yes [id number] 1000U Take 1 Univers justin, 5-01 capsule by ity of Vitamin D3, 00:00: mouth [place] (VITAMIN 00 daily. Medical D3) 1,000 Branch unit capsule Cholecalcif 2019-0 Yes [id number] 1000U Take 1 Univers justin, 5-01 capsule by ity of Vitamin D3, 00:00: mouth [place] (VITAMIN 00 daily. Medical D3) 1,000 Branch unit capsule Cholecalcif 2019-0 Yes [id number] 1000U Take 1 Univers justin, 5-01 capsule by ity of Vitamin D3, 00:00: mouth [place] (VITAMIN 00 daily. Medical D3) 1,000 Branch unit capsule Cholecalcif 2019-0 Yes [id number] 1000U Take 1 Univers justin, 5-01 capsule by ity of Vitamin D3, 00:00: mouth [place] (VITAMIN 00 daily. Medical D3) 1,000 Branch unit capsule Cholecalcif 2019-0 Yes [id number] 1000U Take 1 Univers justin, 5-01 capsule by ity of Vitamin D3, 00:00: mouth [place] (VITAMIN 00 daily. Medical D3) 1,000 Branch unit capsule Cholecalcif 2019-0 Yes [id number] 1000U Take 1 Univers justin, 5-01 capsule by ity of Vitamin D3, 00:00: mouth [place] (VITAMIN 00 daily. Medical D3) 1,000 Branch unit capsule Cholecalcif 2019-0 Yes [id number] 1000U Take 1 Univers justin, 5-01 capsule by ity of Vitamin D3, 00:00: mouth [place] (VITAMIN 00 daily. Medical D3) 1,000 Branch unit capsule Cholecalcif 2019-0 Yes [id number] 1000U Take 1 Univers justin, 5-01 capsule by ity of Vitamin D3, 00:00: mouth [place] (VITAMIN 00 daily. Medical D3) 1,000 Branch unit capsule Cholecalcif 2019-0 Yes [id number] 1000U Take 1 Univers justin, 5-01 capsule by ity of Vitamin D3, 00:00: mouth [place] (VITAMIN 00 daily. Medical D3) 1,000 Branch unit capsule Cholecalcif 2019-0 Yes [id number] 1000U Take 1 Univers justin, 5-01 capsule by ity of Vitamin D3, 00:00: mouth [place] (VITAMIN 00 daily. Medical D3) 1,000 Branch unit capsule Cholecalcif 2019-0 Yes [id number] 1000U Take 1 Univers justin, 5-01 capsule by ity of Vitamin D3, 00:00: mouth [place] (VITAMIN 00 daily. Medical D3) 1,000 Branch unit capsule Cholecalcif 2019-0 Yes [id number] 1000U Take 1 Univers justin, 5-01 capsule by ity of Vitamin D3, 00:00: mouth [place] (VITAMIN 00 daily. Medical D3) 1,000 Branch unit capsule Cholecalcif 2019-0 Yes [id number] 1000U Take 1 Univers justin, 5-01 capsule by ity of Vitamin D3, 00:00: mouth [place] (VITAMIN 00 daily. Medical D3) 1,000 Branch unit capsule Cholecalcif 2019-0 Yes [id number] 1000U Take 1 Univers justin, 5-01 capsule by ity of Vitamin D3, 00:00: mouth [place] (VITAMIN 00 daily. Medical D3) 1,000 Branch unit capsule Cholecalcif 2019-0 Yes [id number] 1000U Take 1 Univers justin, 5-01 capsule by ity of Vitamin D3, 00:00: mouth [place] (VITAMIN 00 daily. Medical D3) 1,000 Branch unit capsule fluticasone 2019-0 Yes [id number] 2{spray Use 2 Univers 50 4-25 } Sprays in ity of mcg/actuati 00:00: each [place] on nasal 00 nostril Medical spray daily. [place] montelukast 2019- Yes [id number] 10mg Take 1 Univers 10 mg 4-25 tablet by ity of tablet 00:00: mouth [place] 00 every Medical evening. Mora fluticasone 2019-0 Yes [id number] 2{spray Use 2 Univers 50 4-25 } Sprays in ity of mcg/actuati 00:00: each [place] on nasal 00 nostril Medical spray daily. [place] montelukast 2019-0 Yes [id number] 10mg Take 1 Univers 10 mg 4-25 tablet by ity of tablet 00:00: mouth [place] 00 every Medical evening. [place] fluticasone 2019-0 Yes [id number] 2{spray Use 2 Univers 50 4-25 } Sprays in ity of mcg/actuati 00:00: each [place] on nasal 00 nostril Medical spray daily. [place] montelukast 2019-0 Yes [id number] 10mg Take 1 Univers 10 mg 4-25 tablet by ity of tablet 00:00: mouth [place] 00 every Medical evening. [facility] fluticasone 2019-0 Yes [id number] 2{spray Use 2 Univers 50 4-25 } Sprays in ity of mcg/actuati 00:00: each [place] on nasal 00 nostril Medical spray daily. Mora montelukast 2018- Yes [id number] 10mg Take 1 [facility] 10 mg 4-25 tablet by ity of tablet 00:00: mouth [place] 00 every Medical evening. [facility] fluticasone Yes [id number] 2{spray Use 2 [facility] 50 4-25 } Sprays in ity of mcg/actuati 00:00: each [place] on nasal 00 nostril Medical spray daily. [facility] montelukast Yes [id number] 10mg Take 1 [facility] 10 mg 4-25 tablet by ity of tablet 00:00: mouth [place] 00 every Medical evening. [facility] fluticasone Yes [id number] 2{spray Use 2 [facility] 50 4-25 } Sprays in ity of mcg/actuati 00:00: each [place] on nasal 00 nostril Medical spray daily. [facility] montelukast 2018- Yes [id number] 10mg Take 1 [facility] 10 mg 4-25 tablet by ity of tablet 00:00: mouth [place] 00 every Medical evening. [facility] fluticasone Yes [id number] 2{spray Use 2 [facility] 50 4-25 } Sprays in ity of mcg/actuati 00:00: each [place] on nasal 00 nostril Medical spray daily. [facility] montelukast 2018- Yes [id number] 10mg Take 1 [facility] 10 mg 4-25 tablet by ity of tablet 00:00: mouth [place] 00 every Medical evening. [facility] fluticasone 2018- Yes [id number] 2{spray Use 2 [facility] 50 4-25 } Sprays in ity of mcg/actuati 00:00: each [place] on nasal 00 nostril Medical spray daily. [facility] montelukast 2018- Yes [id number] 10mg Take 1 [facility] 10 mg 4-25 tablet by ity of tablet 00:00: mouth [place] 00 every Medical evening. [facility] fluticasone Yes [id number] 2{spray Use 2 [facility] 50 4-25 } Sprays in ity of mcg/actuati 00:00: each [place] on nasal 00 nostril Medical spray daily. [facility] montelukast 2018- Yes [id number] 10mg Take 1 [facility] 10 mg 4-25 tablet by ity of tablet 00:00: mouth [place] 00 every Medical evening. [facility] fluticasone Yes [id number] 2{spray Use 2 [facility] 50 4-25 } Sprays in ity of mcg/actuati 00:00: each [place] on nasal 00 nostril Medical spray daily. [facility] montelukast Yes [id number] 10mg Take 1 [facility] 10 mg 4-25 tablet by ity of tablet 00:00: mouth [place] 00 every Medical evening. [facility] fluticasone Yes [id number] 2{spray Use 2 [facility] 50 4-25 } Sprays in ity of mcg/actuati 00:00: each [place] on nasal 00 nostril Medical spray daily. [facility] montelukast Yes [id number] 10mg Take 1 [facility] 10 mg 4-25 tablet by ity of tablet 00:00: mouth [place] 00 every Medical evening. [facility] fluticasone Yes [id number] 2{spray Use 2 [facility] 50 4-25 } Sprays in ity of mcg/actuati 00:00: each [place] on nasal 00 nostril Medical spray daily. [facility] montelukast Yes [id number] 10mg Take 1 [facility] 10 mg 4-25 tablet by ity of tablet 00:00: mouth [place] 00 every Medical evening. [facility] fluticasone Yes [id number] 2{spray Use 2 [facility] 50 4-25 } Sprays in ity of mcg/actuati 00:00: each [place] on nasal 00 nostril Medical spray daily. [facility] montelukast 2018- Yes [id number] 10mg Take 1 [facility] 10 mg 4-25 tablet by ity of tablet 00:00: mouth [place] 00 every Medical evening. [facility] fluticasone Yes [id number] 2{spray Use 2 [facility] 50 4-25 } Sprays in ity of mcg/actuati 00:00: each [place] on nasal 00 nostril Medical spray daily. [facility] montelukast 2018- Yes [id number] 10mg Take 1 [facility] 10 mg 4-25 tablet by ity of tablet 00:00: mouth [place] 00 every Medical evening. [facility] fluticasone 2018- Yes [id number] 2{spray Use 2 [facility] 50 4-25 } Sprays in ity of mcg/actuati 00:00: each [place] on nasal 00 nostril Medical spray daily. [facility] montelukast Yes [id number] 10mg Take 1 [facility] 10 mg 4-25 tablet by ity of tablet 00:00: mouth [place] 00 every Medical evening. [facility] fluticasone Yes [id number] 2{spray Use 2 [facility] 50 4-25 } Sprays in ity of mcg/actuati 00:00: each [place] on nasal 00 nostril Medical spray daily. [facility] montelukast Yes [id number] 10mg Take 1 [facility] 10 mg 4-25 tablet by ity of tablet 00:00: mouth [place] 00 every Medical evening. [facility] fluticasone Yes [id number] 2{spray Use 2 [facility] 50 4-25 } Sprays in ity of mcg/actuati 00:00: each [place] on nasal 00 nostril Medical spray daily. [facility] montelukast Yes [id number] 10mg Take 1 [facility] 10 mg 4-25 tablet by ity of tablet 00:00: mouth [place] 00 every Medical evening. [facility] fluticasone Yes [id number] 2{spray Use 2 [facility] 50 4-25 } Sprays in ity of mcg/actuati 00:00: each [place] on nasal 00 nostril Medical spray daily. [facility] montelukast Yes [id number] 10mg Take 1 [facility] 10 mg 4-25 tablet by ity of tablet 00:00: mouth [place] 00 every Medical evening. [facility] fluticasone Yes [id number] 2{spray Use 2 [facility] 50 4-25 } Sprays in ity of mcg/actuati 00:00: each [place] on nasal 00 nostril Medical spray daily. [facility] montelukast 2018- Yes [id number] 10mg Take 1 [facility] 10 mg 4-25 tablet by ity of tablet 00:00: mouth [place] 00 every Medical evening. [facility] rosuvastati 2018- Yes [id number] 10mg Take 1 [facility] n 10 mg 4-25 tablet by ity of tablet 00:00: mouth at [place] 00 bedtime. Medical Branch fluticasone 2018- Yes [id number] 2{spray Use 2 [facility] 50 4-25 } Sprays in ity of mcg/actuati 00:00: each [place] on nasal 00 nostril Medical spray daily. Branch montelukast 2018- Yes [id number] 10mg Take 1 [facility] 10 mg 4-25 tablet by ity of tablet 00:00: mouth [place] 00 every Medical evening. Branch rosuvastati 2019- No [id number] 10mg Take 1 [facility] n 10 mg 4-25 07-29 tablet by ity of tablet 00:00: 00:00 mouth at [place] 00 :00 bedtime. Medical Branch rosuvastati 2019- No [id number] 10mg Take 1 [facility] n 10 mg 4-25 07-29 tablet by ity of tablet 00:00: 00:00 mouth at [place] 00 :00 bedtime. Medical Branch celecoxib Yes [id number] 100mg Take 1 [facility] 100 mg 4-23 capsule by [facility] capsule 00:00: mouth [place] 00 daily as Medical needed for Branch Pain or Inflammati on. Take with food. Use sparingly due to possible side effects. celecoxib Yes [id number] 100mg Take 1 [facility] 100 mg 4-23 capsule by [facility] capsule 00:00: mouth [place] 00 daily as Medical needed for Branch Pain or Inflammati on. Take with food. Use sparingly due to possible side effects. celecoxib Yes [id number] 100mg Take 1 [facility] 100 mg 4-23 capsule by [facility] capsule 00:00: mouth [place] 00 daily as Medical needed for Branch Pain or Inflammati on. Take with food. Use sparingly due to possible side effects. celecoxib Yes [id number] 100mg Take 1 [facility] 100 mg 4-23 capsule by [facility] capsule 00:00: mouth [place] 00 daily as Medical needed for Branch Pain or Inflammati on. Take with food. Use sparingly due to possible side effects. celecoxib Yes [id number] 100mg Take 1 [facility] 100 mg 4-23 capsule by [facility] of capsule 00:00: mouth [place] 00 daily as Medical needed for Branch Pain or Inflammati on. Take with food. Use sparingly due to possible side effects. celecoxib Yes [id number] 100mg Take 1 [facility] 100 mg 4-23 capsule by [facility] of capsule 00:00: mouth [place] 00 daily as Medical needed for Branch Pain or Inflammati on. Take with food. Use sparingly due to possible side effects. celecoxib 2019-0 Yes [id number] 100mg Take 1 [facility] 100 mg 4-23 capsule by [facility] capsule 00:00: mouth [place] 00 daily as Medical needed for Branch Pain or Inflammati on. Take with food. Use sparingly due to possible side effects. celecoxib 2019-0 Yes [id number] 100mg Take 1 [facility] 100 mg 4-23 capsule by [facility] of capsule 00:00: mouth [place] 00 daily as Medical needed for Branch Pain or Inflammati on. Take with food. Use sparingly due to possible side effects. celecoxib 2019-0 Yes [id number] 100mg Take 1 [facility] 100 mg 4-23 capsule by [facility] of capsule 00:00: mouth [place] 00 daily as Medical needed for Branch Pain or Inflammati on. Take with food. Use sparingly due to possible side effects. celecoxib 2019-0 Yes [id number] 100mg Take 1 [facility] 100 mg 4-23 capsule by [facility] of capsule 00:00: mouth [place] 00 daily as Medical needed for Branch Pain or Inflammati on. Take with food. Use sparingly due to possible side effects. celecoxib 2019-0 Yes [id number] 100mg Take 1 [facility] 100 mg 4-23 capsule by [facility] capsule 00:00: mouth [place] 00 daily as Medical needed for Branch Pain or Inflammati on. Take with food. Use sparingly due to possible side effects. celecoxib 2019-0 Yes [id number] 100mg Take 1 [facility] 100 mg 4-23 capsule by [facility] of capsule 00:00: mouth [place] 00 daily as Medical needed for Branch Pain or Inflammati on. Take with food. Use sparingly due to possible side effects. celecoxib 2019-0 Yes [id number] 100mg Take 1 [facility] 100 mg 4-23 capsule by [facility] of capsule 00:00: mouth [place] 00 daily as Medical needed for Branch Pain or Inflammati on. Take with food. Use sparingly due to possible side effects. celecoxib 2019-0 Yes [id number] 100mg Take 1 [facility] 100 mg 4-23 capsule by [facility] of capsule 00:00: mouth [place] 00 daily as Medical needed for Branch Pain or Inflammati on. Take with food. Use sparingly due to possible side effects. celecoxib Yes [id number] 100mg Take 1 [facility] 100 mg 4-23 capsule by [facility] of capsule 00:00: mouth [place] 00 daily as Medical needed for Branch Pain or Inflammati on. Take with food. Use sparingly due to possible side effects. celecoxib Yes [id number] 100mg Take 1 [facility] 100 mg 4-23 capsule by [facility] of capsule 00:00: mouth [place] 00 daily as Medical needed for Branch Pain or Inflammati on. Take with food. Use sparingly due to possible side effects. celecoxib Yes [id number] 100mg Take 1 [facility] 100 mg 4-23 capsule by [facility] of capsule 00:00: mouth [place] 00 daily as Medical needed for Branch Pain or Inflammati on. Take with food. Use sparingly due to possible side effects. celecoxib Yes [id number] 100mg Take 1 [facility] 100 mg 4-23 capsule by [facility] of capsule 00:00: mouth [place] 00 daily as Medical needed for Branch Pain or Inflammati on. Take with food. Use sparingly due to possible side effects. celecoxib Yes [id number] 100mg Take 1 [facility] 100 mg 4-23 capsule by [facility] of capsule 00:00: mouth [place] 00 daily as Medical needed for Branch Pain or Inflammati on. Take with food. Use sparingly due to possible side effects. celecoxib Yes [id number] 100mg Take 1 [facility] 100 mg 4-23 capsule by [facility] of capsule 00:00: mouth [place] 00 daily as Medical needed for Branch Pain or Inflammati on. Take with food. Use sparingly due to possible side effects. Blood-Gluco Yes [id number] Check [facility] se Meter 3-01 glucose ity of Kit 00:00: once a day [place] 00 before Medical breakfast, Branch goal is less than 130; Diagnosis code E11.9 blood sugar Yes [id number] Check [facility] diagnostic 3-01 glucose ity of (BLOOD 00:00: once a day [place] GLUCOSE 00 before Medical TEST) strip breakfast, Br anch goal is less than 130; Diagnosis code E11.9 Lancets Yes [id number] Check [facility] ers Misc 3-01 glucose ity of 00:00: once a day [place] 00 before Medical breakfast, Branch goal is less than 130; Diagnosis code E11.9 Blood-Gluco 2018- Yes [id number] Check [facility] se Meter 3-01 glucose ity of Kit 00:00: once a day [place] 00 before Medical breakfast, Branch goal is less than 130; Diagnosis code E11.9 blood sugar 2018- Yes [id number] Check [facility] diagnostic 3-01 glucose ity of (BLOOD 00:00: once a day [place] GLUCOSE 00 before Medical TEST) strip breakfast, Br anch goal is less than 130; Diagnosis code E11.9 Lancets 2018- Yes [id number] Check [facility] ers Misc 3-01 glucose ity of 00:00: once a day [place] 00 before Medical breakfast, Branch goal is less than 130; Diagnosis code E11.9 Blood-Gluco 2018- Yes [id number] Check [facility] se Meter 3-01 glucose ity of Kit 00:00: once a day [place] before Medical breakfast, Branch goal is less than 130; Diagnosis code E11.9 blood sugar 2017- Yes [id number] Check [facility] diagnostic 3-01 glucose ity of (BLOOD 00:00: once a day [place] GLUCOSE 00 before Medical TEST) strip breakfast, Br anch goal is less than 130; Diagnosis code E11.9 Lancets 2018- Yes [id number] Check [facility] ers Misc 3-01 glucose ity of 00:00: once a day [place] 00 before Medical breakfast, Branch goal is less than 130; Diagnosis code E11.9 Blood-Gluco 2018- Yes [id number] Check [facility] se Meter 3-01 glucose ity of Kit 00:00: once a day [place] before Medical breakfast, Branch goal is less than 130; Diagnosis code E11.9 blood sugar Yes [id number] Check [facility] diagnostic 3-01 glucose ity of (BLOOD 00:00: once a day [place] GLUCOSE 00 before Medical TEST) strip breakfast, Br anch goal is less than 130; Diagnosis code E11.9 Lancets 2018- Yes [id number] Check [facility] ers Misc 3-01 glucose ity of 00:00: once a day [place] 00 before Medical breakfast, Branch goal is less than 130; Diagnosis code E11.9 Blood-Gluco 2018- Yes [id number] Check [facility] se Meter 3-01 glucose ity of Kit 00:00: once a day [place] 00 before Medical breakfast, Branch goal is less than 130; Diagnosis code E11.9 blood sugar 2018- Yes [id number] Check [facility] diagnostic 3-01 glucose ity of (BLOOD 00:00: once a day [place] GLUCOSE 00 before Medical TEST) strip breakfast, Br anch goal is less than 130; Diagnosis code E11.9 Lancets 2018- Yes [id number] Check [facility] ers Misc 3-01 glucose ity of 00:00: once a day [place] 00 before Medical breakfast, Branch goal is less than 130; Diagnosis code E11.9 Blood-Gluco 2018- Yes [id number] Check [facility] se Meter 3-01 glucose ity of Kit 00:00: once a day [place] 00 before Medical breakfast, Branch goal is less than 130; Diagnosis code E11.9 blood sugar Yes [id number] Check [facility] diagnostic 3-01 glucose ity of (BLOOD 00:00: once a day [place] GLUCOSE 00 before Medical TEST) strip breakfast, Br anch goal is less than 130; Diagnosis code E11.9 Lancets 2018- Yes [id number] Check [facility] ers Misc 3-01 glucose ity of 00:00: once a day [place] 00 before Medical breakfast, Branch goal is less than 130; Diagnosis code E11.9 Blood-Gluco 2017- Yes [id number] Check [facility] se Meter 3-01 glucose ity of Kit 00:00: once a day [place] 00 before Medical breakfast, Branch goal is less than 130; Diagnosis code E11.9 blood sugar Yes [id number] Check [facility] diagnostic 3-01 glucose ity of (BLOOD 00:00: once a day [place] GLUCOSE 00 before Medical TEST) strip breakfast, Br anch goal is less than 130; Diagnosis code E11.9 Lancets 2018- Yes [id number] Check [facility] ers Misc 3-01 glucose ity of 00:00: once a day [place] 00 before Medical breakfast, Branch goal is less than 130; Diagnosis code E11.9 Blood-Gluco 2018- Yes [id number] Check [facility] se Meter 3-01 glucose ity of Kit 00:00: once a day [place] 00 before Medical breakfast, Branch goal is less than 130; Diagnosis code E11.9 blood sugar Yes [id number] Check [facility] diagnostic 3-01 glucose ity of (BLOOD 00:00: once a day [place] GLUCOSE 00 before Medical TEST) strip breakfast, Br anch goal is less than 130; Diagnosis code E11.9 Lancets 2018 Yes [id number] Check [facility] ers Misc 3-01 glucose ity of 00:00: once a day [place] 00 before Medical breakfast, Branch goal is less than 130; Diagnosis code E11.9 Blood-Gluco Yes [id number] Check [facility] se Meter 3-01 glucose ity of Kit 00:00: once a day [place] 00 before Medical breakfast, Branch goal is less than 130; Diagnosis code E11.9 blood sugar Yes [id number] Check [facility] diagnostic 3-01 glucose ity of (BLOOD 00:00: once a day [place] GLUCOSE 00 before Medical TEST) strip breakfast, Br anch goal is less than 130; Diagnosis code E11.9 Lancets Yes [id number] Check [facility] ers Misc 3-01 glucose ity of 00:00: once a day [place] 00 before Medical breakfast, Branch goal is less than 130; Diagnosis code E11.9 Blood-Gluco Yes [id number] Check [facility] se Meter 3-01 glucose ity of Kit 00:00: once a day [place] 00 before Medical breakfast, Branch goal is less than 130; Diagnosis code E11.9 blood sugar Yes [id number] Check [facility] diagnostic 3-01 glucose ity of (BLOOD 00:00: once a day [place] GLUCOSE 00 before Medical TEST) strip breakfast, Br anch goal is less than 130; Diagnosis code E11.9 Lancets Yes [id number] Check Univ ers Misc 3-01 glucose ity of 00:00: once a day [place] 00 before Medical breakfast, Branch goal is less than 130; Diagnosis code E11.9 Blood-Gluco Yes [id number] Check [facility] se Meter 3-01 glucose ity of Kit 00:00: once a day [place] 00 before Medical breakfast, Branch goal is less than 130; Diagnosis code E11.9 blood sugar Yes [id number] Check [facility] diagnostic 3-01 glucose ity of (BLOOD 00:00: once a day [place] GLUCOSE 00 before Medical TEST) strip breakfast, Br anch goal is less than 130; Diagnosis code E11.9 Lancets Yes [id number] Check Univ ers Misc 3-01 glucose ity of 00:00: once a day [place] 00 before Medical breakfast, Branch goal is less than 130; Diagnosis code E11.9 aspirin 81 Yes [id number] 81mg Take 1 [facility] mg EC 3-01 tablet by ity of tablet 00:00: mouth [place] 00 daily. Medical Take with Branch food. Blood-Gluco 2018- Yes [id number] Check [facility] se Meter 3-01 glucose ity of Kit 00:00: once a day [place] 00 before Medical breakfast, Branch goal is less than 130; Diagnosis code E11.9 blood sugar 2018 Yes [id number] Check [facility] diagnostic 3-01 glucose ity of (BLOOD 00:00: once a day [place] GLUCOSE 00 before Medical TEST) strip breakfast, Br anch goal is less than 130; Diagnosis code E11.9 Lancets Yes [id number] Check Univ ers Misc 3-01 glucose ity of 00:00: once a day [place] 00 before Medical breakfast, Branch goal is less than 130; Diagnosis code E11.9 aspirin 81 2019- No [id number] 81mg Take 1 [facility] mg EC 3-01 07-29 tablet by ity of tablet 00:00: 00:00 mouth [place] 00 :00 daily. Medical Take with Branch food. aspirin 81 2019- No [id number] 81mg Take 1 [facility] mg EC 3-01 07-29 tablet by ity of tablet 00:00: 00:00 mouth [place] 00 :00 daily. Medical Take with Branch food. Immunizations Ordered Filled Immunization Date Status Comments [facility] e Immunization Name Name SARS-COV-2 COVID-19 2020-11-20 Completed Unive rsity of PFIZER VACCINE 00:00:00 [facility] SARS-COV-2 COVID-19 2020-11-20 Completed Unive rsity of PFIZER VACCINE 00:00:00 [facility] SARS-COV-2 COVID-19 2020-11-20 Completed Unive rsity of PFIZER VACCINE 00:00:00 [facility] SARS-COV-2 COVID-19 2020-11-20 Completed Unive rsity of PFIZER VACCINE 00:00:00 [facility] SARS-COV-2 COVID-19 2020-11-20 Completed Unive rsity of PFIZER VACCINE 00:00:00 [facility] SARS-COV-2 COVID-19 2020-11-20 Completed Unive rsity of PFIZER VACCINE 00:00:00 [place] [facility] SARS-COV-2 COVID-19 2020-11-20 Completed Unive rsity of PFIZER VACCINE 00:00:00 [facility] SARS-COV-2 COVID-19 2020-11-20 Completed Unive rsity of PFIZER VACCINE 00:00:00 [facility] SARS-COV-2 COVID-19 2020-10-30 Completed Unive rsity of PFIZER VACCINE 00:00:00 [facility] SARS-COV-2 COVID-19 2020-10-30 Completed Unive rsity of PFIZER VACCINE 00:00:00 [facility] SARS-COV-2 COVID-19 2020-10-30 Completed Unive rsity of PFIZER VACCINE 00:00:00 [facility] SARS-COV-2 COVID-19 2020-10-30 Completed Unive rsity of PFIZER VACCINE 00:00:00 [facility] SARS-COV-2 COVID-19 2020-10-30 Completed Unive rsity of PFIZER VACCINE 00:00:00 [facility] SARS-COV-2 COVID-19 2020-10-30 Completed Unive rsity of PFIZER VACCINE 00:00:00 [facility] SARS-COV-2 COVID-19 2020-10-30 Completed Unive rsity of PFIZER VACCINE 00:00:00 [facility] SARS-COV-2 COVID-19 2020-10-30 Completed Unive rsity of PFIZER VACCINE 00:00:00 [facility] TDAP 2019-06-25 Completed University of 00:00:00 [facility] TDAP 2019-06-25 Completed University of 00:00:00 [facility] TDAP 2019-06-25 Completed University of 00:00:00 [facility] TDAP 2019-06-25 Completed University of 00:00:00 [facility] TDAP 2019-06-25 Completed University of 00:00:00 [facility] TDAP 2019-06-25 Completed University of 00:00:00 [facility] TDAP 2019-06-25 Completed University of 00:00:00 [facility] TDAP 2019-06-25 Completed University of 00:00:00 [facility] Influenza High Dose 2019-06-08 Completed Unive rsity of 00:00:00 [facility] Influenza High Dose 2019-06-08 Completed Unive rsity of 00:00:00 [facility] Influenza High Dose 2019-06-08 Completed Unive rsity of 00:00:00 [facility] Influenza High Dose 2019-06-08 Completed Unive rsity of 00:00:00 [facility] Influenza High Dose 2019-06-08 Completed Unive rsity of 00:00:00 [facility] Influenza High Dose 2019-06-08 Completed Unive rsity of 00:00:00 [facility] Influenza High Dose 2019-06-08 Completed Unive rsity of 00:00:00 [facility] Influenza High Dose 2019-06-08 Completed Unive rsity of 00:00:00 [facility] Pneumococcal 13 2019-03-31 Completed Universit y of Conjugate, PCV13 00:00:00 [place] [facility] (Prevnar 13) Branch Pneumococcal 13 2019-03-31 Completed Universit y of Conjugate, PCV13 00:00:00 [place] [facility] (Prevnar 13) Branch Pneumococcal 13 2019-03-31 Completed Universit y of Conjugate, PCV13 00:00:00 [place] Me [facility]ical (Prevnar 13) Branch Pneumococcal 13 2019-03-31 Completed Universit y of Conjugate, PCV13 00:00:00 [place] [facility] (Prevnar 13) Branch Pneumococcal 13 2019-03-31 Completed Universit y of Conjugate, PCV13 00:00:00 [place] [facility] (Prevnar 13) Branch Pneumococcal 13 2019-03-31 Completed Universit y of Conjugate, PCV13 00:00:00 [place] [facility] (Prevnar 13) Branch Pneumococcal 13 2019-03-31 Completed Universit y of Conjugate, PCV13 00:00:00 [place] [facility] (Prevnar 13) Branch Pneumococcal 13 2019-03-31 Completed Universit y of Conjugate, PCV13 00:00:00 [place] [facility] (Prevnar 13) Branch Pneumococcal 13 2019-03-31 Completed Universit y of Conjugate, PCV13 00:00:00 [place] [facility] (Prevnar 13) Branch Pneumococcal 13 2019-03-31 Completed Universit y of Conjugate, PCV13 00:00:00 [place] [facility] (Prevnar 13) Branch Pneumococcal 13 2019-03-31 Completed Universit y of Conjugate, PCV13 00:00:00 [place] [facility] (Prevnar 13) Branch Pneumococcal 13 2019-03-31 Completed Universit y of Conjugate, PCV13 00:00:00 [place] [facility] (Prevnar 13) Branch Pneumococcal 13 2019-03-31 Completed Universit y of Conjugate, PCV13 00:00:00 [place] [facility] (Prevnar 13) Branch Pneumococcal 13 2019-03-31 Completed Universit y of Conjugate, PCV13 00:00:00 [place] Me [facility]ical (Prevnar 13) Branch Pneumococcal 13 2019-03-31 Completed Universit y of Conjugate, PCV13 00:00:00 [place] Me dical (Prevnar 13) Branch Pneumococcal 13 2019-03-31 Completed Universit y of Conjugate, PCV13 00:00:00 [place] Me [facility] (Prevnar 13) Branch Pneumococcal 13 2019-03-31 Completed Universit y of Conjugate, PCV13 00:00:00 [place] Me dical (Prevnar 13) Branch Pneumococcal 13 2019-03-31 Completed Universit y of Conjugate, PCV13 00:00:00 [facility] dical (Prevnar 13) Branch Pneumococcal 13 2019-03-31 Completed Universit y of Conjugate, PCV13 00:00:00 [facility] dical (Prevnar 13) Branch Vital Signs Vital Name Observation Time Observation Value Comments Source Systolic blood 2021-02-25 15:07:00 136 mm[Hg] [facility] of [facility] Diastolic blood 2021-02-25 15:07:00 80 mm[Hg] [facility] of [facility] Heart rate 2021-02-25 15:07:00 80 /min Universi ty [facility] Body height 2021-02-25 15:03:00 149.9 cm Universi ty [facility] Body weight 2021-02-25 15:03:00 86.183 kg Universi ty [facility] BMI 2021-02-25 15:03:00 38.38 kg/m2 Universi ty [facility] Systolic blood 2021-02-16 19:31:00 151 mm[Hg] Univer sity of [facility] Diastolic blood 2021-02-16 19:31:00 77 mm[Hg] [facility]ive rsity of [facility] Heart rate 2021-02-16 19:31:00 83 /min Universi ty [facility] Body height 2021-02-16 19:29:00 149.9 cm Universi ty [facility] Body weight 2021-02-16 19:29:00 86.183 kg Universi ty [facility] [place] [facility] BMI 2021-02-16 19:29:00 38.38 kg/m2 [facility] [place] [facility] Systolic blood 2019-04-07 14:17:00 119 mm[Hg] Univer sity of pressure [place] [facility] Diastolic blood 2019-04-07 14:17:00 71 mm[Hg] Unive rsity of pressure [facility] Branch Heart rate 2019-04-07 14:17:00 78 /min [facility] [facility] Body temperature 2019-04-07 14:17:00 36.56 Alicia Univ ersity of [facility] Respiratory rate 2019-04-07 14:17:00 20 /min Univ [facility] of [facility] Body height 2019-04-07 14:17:00 147.3 cm [facility] Body weight 2019-04-07 14:17:00 87.635 kg [facility] BMI 2019-04-07 14:17:00 40.38 kg/m2 [facility] Systolic blood 2019-04-07 13:21:00 115 mm[Hg] Univer [facility] Diastolic blood 2019-04-07 13:21:00 70 mm[Hg] Unive rsity of pressure [facility] Heart rate 2019-04-07 13:21:00 79 /min [facility] Respiratory rate 2019-04-07 13:21:00 20 /min Univ [facility] of [facility] Body height 2019-04-07 13:21:00 162.6 cm [facility] Body weight 2019-04-07 13:21:00 87.59 kg [facility] BMI 2019-04-07 13:21:00 33.15 kg/m2 [facility] Oxygen saturation in 2019-04-07 13:21:00 95 /min [facility] Arterial blood by [facility] Pulse oximetry Branch Systolic blood 2019-03-31 17:07:00 135 mm[Hg] [facility] Diastolic blood 2019-03-31 17:07:00 62 mm[Hg] Unive rsity of pressure [facility] Heart rate 2019-03-31 17:07:00 71 /min [facility] Body temperature 2019-03-31 17:07:00 36 Alicia [facility] Body height 2019-03-31 17:07:00 162.6 cm [facility] Body weight 2019-03-31 17:07:00 87.091 kg [facility] BMI 2019-03-31 17:07:00 32.96 kg/m2 [facility] Procedures Procedure Date / Time Performing Clinician Source Performed EXTERNAL PROVIDER RECORDS 2019-05-12 05:01:00 Doctor Bliss [facility] BI SCREENING MAMMOGRAM 2019-04-30 16:06:00 Minnie Escalante [facility] BILATERAL [facility] CONSENT/REFUSAL FOR 2019-04-30 15:27:[address] [facility] DIAGNOSIS AND TREATMENT [facility] ASSIGNMENT OF BENEFITS 2019-04-30 15:26:56 Doctor Bliss, [facility] (HIP AND SPINE) 2019-04-09 18:31:05 Kendrick Reyna [facility] ASSIGNMENT OF BENEFITS 2019-04-09 18:07:37 Doctor Ruthy [facility] COMP. METABOLIC PANEL 2019-03-31 17:45:00 Kendrick Reyna [facility] ([id number]) [facility] LIPID PANEL ([id number])(TOTAL 2019-03-31 17:45:00 Kendrick Reyna [facility] CHOLESTEROL, [facility] TRIGLYCERIDES, HDL) CBC WITH DIFFERENTIAL 2019-03-31 17:45:00 Kendrick Reyna [facility] GLYCOSYLATED HEMOGLOBIN 2019-03-31 17:45:00 Kendrick Reyna [facility] (A1C) [facility] PNEUMOCOCCAL 13 (PREVNAR) 2019-03-31 17:35:19 Kendrick Reyna [facility] VACCINE [facility] NO SHOW OR MISSED 2019-03-31 16:09:42 Doctor Ruthy, [facility] APPOINTMENT POLICY [facility] h ACKNOWLEDGEMENT Encounters Start End Encounter Admission Attending Care Care Encounter Source Date/Time Date/Time Type Type Clinicians Facility Department ID 2021-08-31 2021-08-31 Outpatient Sona ANDERSON [facility] [id number] Univers 15:45:00 15:45:00 FRANK [id number] [facility] 2021-08-31 2021-08-31 Outpatient Sona ANDERSON [facility] [id number] Univers 15:45:00 15:45:00 FRANK [facility] 2021-08-23 2021-08-23 ambulatory [facility] [id number] [facility] 2021-08-19 2021-08-19 [facility] [id number] Univers 08:30:00 08:30:00 FRANK [id number] [facility] 2021-08-19 2021-08-19 [facility] [id number] Univers 08:30:00 08:30:00 [facility] 2021-07-08 2021-07-08 ambulatory [facility]LMLC [facility]MLC [id number] [facility] 2021-06-15 2021-06-15 Outpatient [facility]LMLC [facility] [id number] [facility] 2021-05-18 2021-05-18 Outpatient [facility]LMLC [facility] [id number] [facility] 2021-05-03 2021-05-03 Outpatient [facility]LMLC [facility] [id number] [facility] 2021-04-21 2021-04-21 Outpatient [facility]LMLC [facility] [id number] [facility] 2021-02-25 2021-02-25 [id number] Univers 10:02:20 10:17:20 Visit [facility] [id number] it y of Surgical [id number] Aman as Specialti [phone] La dical es 198 [facility] 2021-02-25 2021-02-25 Outpatient R RUSTAM [facility] [id number] Univers 10:00:00 10:00:00 JYOTI [id number] [facility] 2021-02-25 2021-02-25 [facility] [id number] Univers 10:00:00 10:00:00 [facility] 2021-02-24 [facility] [id number] Univers 00:00:00 00:00:00 [facility] [id number] it y of Surgical [id number] Aman as Specialti [phone] La dical es 198 [facility] 2021-02-16 2021-02-16 Office Rustam [facility] [id number] Univers 14:25:34 15:13:29 Visit [facility] [id number] it y of Surgical [id number] Aman as Specialti [phone] La dical es 198 [facility] 2021-02-16 2021-02-16 Outpatient [facility] [id number] Univers 09:30:00 09:30:00 [id number] ity [facility] 2021-02-16 2021-02-16 Outpatient Sona SMITH [facility] [id number] Univers 09:30:00 09:30:00 AYLA simons [facility] 2021-02-16 2021-02-16 Office Gerardo Parkinson [facility] 1.2.840 .[id number] Univers 09:13:14 09:28:14 Visit Ayla Smith MULTISPEC [id number] [facility] [place] [id number] [facility] [phone] Domenic Parekh [address] [place] [address] [facility] 2021-01-19 2021-01-19 Outpatient [facility]LMLC [facility] [id number] [facility] 2021-01-13 2021-01-13 Outpatient R [facility] [id number] Univers 13:30:00 13:30:00 [id number] [facility] 2021-01-13 2021-01-13 Outpatient R [facility] [id number] Univers 13:30:00 13:30:00 [facility] 2020-12-15 2020-12-15 Outpatient [facility]LMLC STLC [id number] [facility] 2020-12-14 2020-12-14 Outpatient [facility]LMLC STLC [id number] [facility] 2020-12-06 2020-12-06 Outpatient [facility] STLC [id number] [facility] 2020-11-24 2020-11-24 Outpatient [facility]LMLC STLC [id number] [facility] 2020-11-22 2020-11-22 Outpatient [facility]LMLC STLC [id number] [facility] 2020-11-20 2020-11-20 Outpatient [facility] [id number] Univers 09:35:00 09:35:00 [facility] 2020-10-30 2020-10-30 Outpatient [facility] [id number] Univers 09:35:00 09:35:00 [facility] 2020-10-05 2020-10-05 Outpatient [facility]LMLC STLC [id number] [facility] 2020-09-16 2020-09-16 Outpatient [facility]LMLC STLC [id number] [facility] 2020-04-07 2020-04-07 Outpatient R LORENZO [facility] [id number] Univers 09:00:00 09:00:00 MINNIE [facility] 2020-02-24 2020-02-24 Outpatient R CAROL [facility] [id number] Univers 14:00:00 14:00:00 WONDIFUL [id number] ity o f [facility] 2020-02-24 2020-02-24 Outpatient R CAROL [facility] [id number] Univers 14:00:00 14:00:00 WONDIFUL ity o f [facility] 2020-01-16 2020-01-16 [facility] [id number] Univers 16:00:00 16:00:00 WONDIFUL ity o f [facility] 2019-05-12 2019-05-12 Orders Doctor GUSTAVO [id number] Univers 00:00:00 00:00:00 Only Unassigned, AXEL [id number] ity of [place] [facility] 4.2.7.2.686 Aman as [phone] [address] 2019-04-30 2019-04-30 [facility] 1.2.840.114 [id number] Univers 10:00:00 23:59:00 Encounter Minnie [place] [id number] it[place] 4.2.7.2.686 [facility] [phone] [address] 2019-04-18 2019-04-[address] [facility] [id number] Univers 00:00:00 00:00:00 Wondiful [facility] 350.1.13.10 ity of [place] 4.2.7.2.686 Aman as Professio [id number] [address] Office Building One 2019-04-09 2019-04-09 [facility] [id number] Univers 13:10:18 23:59:00 Encounter Wondiful A [place] [id number] ity of [place] 4.2.7.2.686 [facility] [id number] [address] 2019-04-09 2019-04-09 Orders Doctor CHEN 1.2.840.114 [id number] Univers 00:00:00 00:00:00 Only Unassigned, AXEL 350.1.13.10 ity of [place] [facility] 4.2.7.2.686 Aman as [phone] [address] 2019-04-07 2019-04-07 Office Lorenzo [facility] [id number] Univers 09:04:38 10:19:32 Visit Minnie [place] 350.1.13.10 [place] [phone] [facility] [address] [facility] 2019-04-07 2019-04-07 Office Tl [facility] [id number] Univers 08:05:11 08:25:11 Visit Orlando [place] 350.1.13.10 [place]2.[place] [phone] [facility] [address] [facility] 2019-03-31 2019-03-31 Office Carol [facility] [id number] Univers 11:12:05 12:47:20 Visit [place] 350.1.13.10 ity of [place] 4.2.7.2.686 Aman as Professio [phone] [facility] [address] [place] [address] [facility] One 2019-03-31 2019-03-31 Orders Doctor CHEN 1.2.840.114 [id number] Univers 00:00:00 00:00:00 Only Unassigned, AXEL 350.1.13.10 ity of [place] [facility] 4.2.7.2.686 Aman as [phone] [address] Results Test Description Test Time Test Comments Results Result [facility] e Comments BI SCREENING 2019-04-04 Examination:BI Universi ty of MAMMOGRAM 8 SCREENING MAMMOGRAM [place] [facility] BILATERAL 17:50:10 BILATERAL Branch History:Patient is 63 year old and is seen for:?Routine mammogram screening.?No relevant hormone history has been documented for this patient. No relevant surgical history has been documented for this patient. No relevant medical history has been documented for this patient. Computer-aided detection (CAD) utilized. Comparisons : None available Findings:The breasts have scattered areas of fibroglandular density. LeftThere is a focal asymmetry seen in the upper outer quadrant of the left breast in the middle depth. RightThere is a focal asymmetry seen in the upper outer quadrant of the right breast in the anterior depth. BilateralThere are vascular calcifications seen in both breasts. Impression:No signs of malignancy. Recommendation:Sonya carr mammographic follow-up - LeftAnnual mammographic follow-up - Right BI-RADS Category: Both 2 - Benign DEXA AXIAL (HIP 1. Lumbar Spine Uni versity of AND SPINE) 7 L1-L4: [facility] 18:33:22 calculated total Branch T-score is?-1.1, and the Z-score is 0.4, which isosteopenia.The total bone mineral density is calculated at 1.058 g/cm2. This puts the patient at increased risk for compression fractures. 2. Right Hip:The calculated T-score at the femoral neck is -0.7, and the Z-score is 0.7,normal.The calculated total T-score is 0.9, and the Z-score is 2.0, which isnormal. The total bone mineral density is calculated at 1.115 g/cm2. There is no increased risk for femoral neck fractures. * * * * * * * * ORIGINAL REPORT * * * * * * * *EXAM: Dual-energy X-ray absorptiometry. HISTORY: 63yo F who is due for osteoporosis screening.? COMPARISON: None. TECHNIQUE and FINDINGS: Bone densitometry of the lumbar spine and right hip was performed. ------WHO-definitio ns: T-score normal: +/- 1 SD around the meanosteopenia: >1 to 2.4 SD below the meanosteoporosis: >2.5 SD below the meanFracture risk doubles for each 1.5 SD below the mean. [facility], Radiant Results Inft User - 04/09/2019 1:35 PM CDT* * * * * * * * ORIGINAL REPORT * * * * * * * *EXAM: Dual-energy X-ray absorptiometry.HIST ORY: 63yo F who is due for osteoporosis screening. COMPARISON: None.TECHNIQUE and FINDINGS:Bone densitometry of the lumbar spine and right hip was performed.--------- WHO -definitions: T-scorenormal: +/- 1 SD around the meanosteopenia: >1 to 2.4 SD below the meanosteoporosis: >2.5 SD below the meanFracture risk doubles for each 1.5 SD below the mean. IMPRESSI ON1. Lumbar Spine L1-L4: The calculated total T-score is -1.1, and the Z-score is 0.4, which isosteopenia.The total bone mineral density is calculated at 1.058 g/cm2. This puts the patient at increased risk for compression fractures. 2. Right Hip:The calculated T-score at the femoral neck is -0.7, and the Z-score is 0.7,normal.The calculated total T-score is 0.9, and the Z-score is 2.0, which isnormal. The total bone mineral density is calculated at 1.115 g/cm2. There is no increased risk for femoral neck fractures. GLYCOSYLATED HEMOGLOBIN (A1C) 2019-03-31 20:12:00 Test Item Value Reference Range Interpretation Comme nts HGB A1C (test code = See_Comment [Autom ated message] The 4548-4) system which [employer] nerated this result tra nsmitted reference range : 4.0 - 6.0 % NGSP. The reference range was not u sed to interpret this result as normal/abnormal . WADE (test code = WADE) %A1C (NGSP) Interpretation (ADA)4.8-5.6? Normal or (Non-Diabetic Range)5.7-6.4? Increased Risk (Pre-Diabetic)>6.5?Diab etes Indicated Lab Interpretation Normal (test code = 72421-3) [facility]2019-03-31 20:12:00 Test Item Value Reference Interpretation Comments Range HGB A1C (test code = See_Comment [Autom ated 4548-4) message] The system which generated this result transmitted reference range : 4.0 - 6.0 % NGSP. The reference range was not used to interpret this result as normal/abnormal . WADE (test code = %A1C (NGSP) WADE) Interpretation (ADA)4.8-5.6? Normal or (Non-Diabetic Range)5.7-6.4? Increased Risk (Pre-Diabetic)>6.5?D iabetes Indicated Lab Interpretation Normal (test code = 57991-1) [facility] (57859)(TOTAL CHOLESTEROL, TRIGLYCERIDES, HDL)2019-03-31 20:00:00 Test Item Value Reference Range Interpretation Comments CHOL (test code = 254 mg/dL 120-200 H 0254879647) HDL (test code = 62 mg/dL >50 3597321979) HDLC RATIO (test code = See_Comment [Au tomated message] 3746891263) The system [employer] generated this result transmit iris reference range : <=4.5. The refe rence range was not u sed to interpret th is result as normal/abnormal . TRIG (test code = 196 mg/dL 30-170 H 5021101608) LDL CHOL (test code = 153 mg/dL See_Comment [Auto mated message] 56237-9) The system [employer] generated this result transmit iris reference range : <=160. The refe rence range was not u sed to interpret th is result as normal/abnormal . VLDL (test code = 39 mg/dL 5-60 3013549052) Lab Interpretation (test Abnormal code = 42391-2) [facility] (24024)2019-03-31 20:00:00 Test Item Value Reference Range Interpretation Comments NA (test code = 144 mmol/L 135-145 0114044826) K (test code = 4.6 mmol/L 3.5-5 6145994455) CL (test code = 105 mmol/L 98-108 1112449448) CO2 TOTAL (test code = 29 mmol/L 23-31 3488380670) AGAP (test code = 2-16 4048707545) BUN (test code = 19 mg/dL 7-23 3881496339) GLUCOSE (test code = 107 mg/dL 70-110 2731638406) CREATININE (test code 0.66 mg/dL 0.5-1.04 = 3358213935) TOTAL BILI (test code 0.5 mg/dL 0.1-1.1 = 9572774380) CALCIUM (test code = 9.4 mg/dL 8.6-10.6 3891764069) T PROTEIN (test code = 7.9 g/dL 6.3-8.2 4779453444) ALBUMIN (test code = 4.4 g/dL 3.5-5 8577549452) ALK PHOS (test code = 110 U/L 34-122 0493887848) ALT(SGPT) (test code = 26 U/L 9-51 1413723541) AST(SGOT) (test code = 23 U/L 13-40 2503885645) eGFR Calculation mL/min/1.73m2 (Non-) (test code = 7031301849) eGFR Calculation mL/min/1.73m2 () (test code = 4371298576) WADE (test code = WADE) Association of Glomerular Filtration Rate (GFR) and Staging of Kidney Disease*+ ---------+ --------+ +| GFR (mL/min/1.73 m2)?| With Kidney Damage?|?Without Kidney Damage+ -------+ ------+ ---------+|?>90?|?Stage one?|? Normal?+ --------+ -------+ +|?60-89?|?St age two?|? Decreased GFR? + -+ + ---+|?30-59?|?Stage three?|? Stage three? + -+ + ---+|?15-29?|?Stage four? |? Stage four?+ ------+ -----+ --------+|?<15 (or dialysis)?|?Stage five? |? Stage five?+ ------+ -----+ --------+*Each stage assumes the associated GFR level has been in effect for at least three months.?Stages 1 to 5, with or without kidney disease, indicate chronic kidney disease.Notes: Determination of stages one and two (with eGFR >59mL/min/1.73 m2) requires estimation of kidney damage for at least three months as defined by structural or functional abnormalities of the kidney, manifested by either:Pathological abnormalities or Markers of kidney damage (including abnormalities in the composition of the blood or urine or abnormalities in imaging tests). [facility] (41519)(TOTAL CHOLESTEROL, TRIGLYCERIDES, HDL)2019-03-31 20:00:00 Test Item Value Reference Range Interpretation Comments CHOL (test code = 254 mg/dL 120-200 H 8881491429) HDL (test code = 62 mg/dL >50 6960638291) HDLC RATIO (test code = See_Comment [Au tomated message] 4712837902) The system [employer] generated this result transmit iris reference range : <=4.5. The refe rence range was not u sed to interpret th is result as normal/abnormal . TRIG (test code = 196 mg/dL 30-170 H 4844057924) LDL CHOL (test code = 153 mg/dL See_Comment [Auto mated message] 20688-5) The system [employer] generated this result transmit iris reference range : <=160. The refe rence range was not u sed to interpret th is result as normal/abnormal . VLDL (test code = 39 mg/dL 5-60 4538814866) Lab Interpretation (test Abnormal code = 74409-8) [facility] (37835)2019-03-31 20:00:00 Test Item Value Reference Range Interpretation Comments NA (test code = 144 mmol/L 135-145 7368397601) K (test code = 4.6 mmol/L 3.5-5 2966822123) CL (test code = 105 mmol/L 98-108 1220300915) CO2 TOTAL (test code = 29 mmol/L 23-31 8828989455) AGAP (test code = 2-16 3889910430) BUN (test code = 19 mg/dL 7-23 1391692867) GLUCOSE (test code = 107 mg/dL 70-110 0002062687) CREATININE (test code 0.66 mg/dL 0.5-1.04 = 0086573367) TOTAL BILI (test code 0.5 mg/dL 0.1-1.1 = 9899011552) CALCIUM (test code = 9.4 mg/dL 8.6-10.6 4918998235) T PROTEIN (test code = 7.9 g/dL 6.3-8.2 0187705727) ALBUMIN (test code = 4.4 g/dL 3.5-5 0663532126) ALK PHOS (test code = 110 U/L 34-122 8705665592) ALT(SGPT) (test code = 26 U/L 9-51 3728473974) AST(SGOT) (test code = 23 U/L 13-40 4882374019) eGFR Calculation mL/min/1.73m2 (Non-) (test code = 1701680928) eGFR Calculation mL/min/1.73m2 () (test code = 6142262433) WADE (test code = WADE) Association of Glomerular Filtration Rate (GFR) and Staging of Kidney Disease*+ ---------+ --------+ +| GFR (mL/min/1.73 m2)?| With Kidney Damage?|?Without Kidney Damage+ -------+ ------+ ---------+|?>90?|?Stage one?|? Normal?+ --------+ -------+ +|?60-89?|?St age two?|? Decreased GFR? + -+ + ---+|?30-59?|?Stage three?|? Stage three?? + -+ + ---+|?15-29?|?Stage four? |? Stage four?+ ------+ -----+ --------+|?<15 (or dialysis)?|?Stage five? |? Stage five?+ ------+ -----+ --------+*Each stage assumes the associated GFR level has been in effect for at least three months.?Stages 1 to 5, with or without kidney disease, indicate chronic kidney disease.Notes: Determination of stages one and two (with eGFR >59mL/min/1.73 m2) requires estimation of kidney damage for at least three months as defined by structural or functional abnormalities of the kidney, manifested by either:Pathological abnormalities or Markers of kidney damage (including abnormalities in the composition of the blood or urine or abnormalities in imaging tests). [facility] WITH [id number] 19:24:00 Test Item Value Reference Range Interpretation Comments WBC (test code = See_Comment [Automated message] 6690-2) The system [employer] generated this result transmitted ref erence range: 4.30 - 1 1.10 10*3/?L. The re ference range was not u sed to interpret this result as normal/abnor mal. RBC (test code = See_Comment [Automated message] 789-8) The system [employer] generated this result transmitted ref erence range: 3.93 - 5 .25 10*6/?L. The re ference range was not u sed to interpret this result as normal/abnor mal. HGB (test code = 13.3 g/dL 11.6-15 718-7) HCT (test code = 40.5 % 35.7-45.2 4544-3) MCV (test code = 87.3 fL 80.6-95.5 787-2) MCH (test code = 28.7 pg 25.9-32.8 785-6) MCHC (test code = 32.8 g/dL 31.6-35.1 786-4) RDW-SD (test code 44.2 fL 39-49.9 = 06242-5) RDW-CV (test code 13.9 % 12-15.5 = 788-0) PLT (test code = See_Comment [Automated message] 777-3) The system [employer] generated this result transmitted ref erence range: 166 - 35 8 10*3/?L. The re ference range was not u sed to interpret this result as normal/abnor mal. MPV (test code = 11.7 fL 9.5-12.9 88579-3) NRBC/100 WBC (test See_Comment [Automat ed message] code = 9527690918) The syste m which generated this result transmitted ref erence range: 0.0 - 10 .0 /100 WBCs. The refer ence range was not u sed to interpret this result as normal/abnor mal. NRBC x10^3 (test <0.01 See_Comment [Automated message] code = 0286242024) The syste m which generated this result transmitted ref erence range: 10*3/?L. The reference range was not used to interpr et this result as normal/abnormal . GRAN MAT (NEUT) % 57.6 % (test code = 770-8) IMM GRAN % (test 0.30 % code = 2490759428) LYMPH % (test code 31.9 % = 736-9) MONO % (test code 6.5 % = 5905-5) EOS % (test code = 3.3 % 713-8) BASO % (test code 0.4 % = 706-2) GRAN MAT 4.41 10*3/uL 1.88-7.09 x10^3(ANC) (test code = 1637530252) IMM GRAN x10^3 <0.03 0-0.06 (test code = 8691872856) LYMPH x10^3 (test 2.44 10*3/uL 1.32-3.29 code = 731-0) MONO x10^3 (test 0.50 10*3/uL 0.33-0.92 code = 742-7) EOS x10^3 (test 0.25 10*3/uL 0.03-0.39 code = 711-2) BASO x10^3 (test 0.03 10*3/uL 0.01-0.07 code = 704-7) [facility] WITH [id number] 19:24:00 Test Item Value Reference Range Interpretation Comments WBC (test code = See_Comment [Automated message] 6715-2) The system [employer] generated this result transmitted ref erence range: 4.30 - 1 1.10 10*3/?L. The re ference range was not u sed to interpret this result as normal/abnor mal. RBC (test code = See_Comment [Automated message] 542-8) The system [employer] generated this result transmitted ref erence range: 3.93 - 5 .25 10*6/?L. The re ference range was not u sed to interpret this result as normal/abnor mal. HGB (test code = 13.3 g/dL 11.6-15 718-7) HCT (test code = 40.5 % 35.7-45.2 4544-3) MCV (test code = 87.3 fL 80.6-95.5 787-2) MCH (test code = 28.7 pg 25.9-32.8 785-6) MCHC (test code = 32.8 g/dL 31.6-35.1 786-4) RDW-SD (test code 44.2 fL 39-49.9 = 93146-8) RDW-CV (test code 13.9 % 12-15.5 = 788-0) PLT (test code = See_Comment [Automated message] 777-3) The system whic h generated this result transmitted ref erence range: 166 - 35 8 10*3/?L. The re ference range was not u sed to interpret this result as normal/abnor mal. MPV (test code = 11.7 fL 9.5-12.9 50641-0) NRBC/100 WBC (test See_Comment [Automat ed message] code = 1256775778) The syste m which generated this result transmitted ref erence range: 0.0 - 10 .0 /100 WBCs. The refer ence range was not u sed to interpret this result as normal/abnor mal. NRBC x10^3 (test <0.01 See_Comment [Automated message] code = 6206743850) The syste m which generated this result transmitted ref erence range: 10*3/?L. The reference range was not used to interpr et this result as normal/abnormal . GRAN MAT (NEUT) % 57.6 % (test code = 770-8) IMM GRAN % (test 0.30 % code = 6697029477) LYMPH % (test code 31.9 % = 736-9) MONO % (test code 6.5 % = 5905-5) EOS % (test code = 3.3 % 713-8) BASO % (test code 0.4 % = 706-2) GRAN MAT 4.41 10*3/uL 1.88-7.09 x10^3(ANC) (test code = 2774946902) IMM GRAN x10^3 <0.03 0-0.06 (test code = 7701506346) LYMPH x10^3 (test 2.44 10*3/uL 1.32-3.29 code = 731-0) MONO x10^3 (test 0.50 10*3/uL 0.33-0.92 code = 742-7) EOS x10^3 (test 0.25 10*3/uL 0.03-0.39 code = 711-2) BASO x10^3 (test 0.03 10*3/uL 0.01-0.07 code = 704-7) [facility]"
--- NOTE | 2021-08-25 18:32 | RAD REPORT ---
EXAM DESCRIPTION: RAD - Knee Right 3 View - 08/25/2021 6:04 pm CLINICAL HISTORY: Right knee pain FINDINGS: No fracture or dislocation is seen. No significant bone or joint abnormality noted
--- NOTE | 2021-08-25 18:34 | ER ---
Nurse's Notes [facility] Name: Sudha Sanchez Age: 65 yrs Sex: Female : 1955 Arrival Date: 08/25/2021 Time: 16:28 Bed Waiting Private MD: Diagnosis: Pain in right knee Presentation: 08/25 17:15 Chief complaint: Patient's son or daughter states: Right knee pain x 3 months, worse jl7 over the past week, reports pain with ambulation. Coronavirus screen: At this time, the client does not indicate any symptoms associated with coronavirus-19. Ebola Screen: No symptoms or risks identified at this time. Initial Sepsis Screen: Does the patient meet any 2 criteria? No. Patient's initial sepsis screen is negative. Does the patient have a suspected source of infection? No. Patient's initial sepsis screen is negative. Risk Assessment: Do you want to hurt yourself or someone else? Patient reports no desire to harm self or others. Onset of symptoms is unknown. 17:15 Method Of Arrival: Wheelchair jl7 17:15 Acuity: MINH 4 jl7 Triage Assessment: 17:16 General: Appears in no apparent distress. uncomfortable, Behavior is calm, cooperative, jl7 appropriate for age. Pain: Complains of pain in right knee. Historical: - Allergies: 17:16 No Known Allergies; jl7 - PMHx: 17:16 Hypertension; jl7 - Immunization history:: Adult Immunizations unknown. - Social history:: Smoking status: unknown. Assessment: 17:10 Reassessment: CLARICE Randolph in triage assessing pt. jl7 Vital Signs: 17:15 BP 153 / 72; Pulse 70; Resp 17; Temp 97.5; Pulse Ox 98% ; Weight 83.91 kg; Height 5 ft. jl7 0 in. (152.40 cm); Pain 10/10; 17:15 Body Mass Index 36.13 (83.91 kg, 152.40 cm) jl7 ED Course: 16:28 Patient arrived in ED. ds1 17:16 Triage completed. jl7 17:16 Tomas[facility] Boateng [facility]-C [facility] kb 17:16 Arm band placed on right wrist. jl7 17:17 Shahzad Bonilla MD is Attending Physician. kb 18:03 Knee Right 3 View XRAY In Process Unspecified. EDMS 19:29 Patient's name was called from ER lobby. No response. lp1 Administered Medications: No medications were administered Outcome: 18:34 Discharge ordered by . kb 21:18 Patient left the ED. lp1 Signatures: Dispatcher [employer] EDMS Tomasa Boateng, UDAY-C BIOMEDICAL SERVICE ENGINEER-Millicent Torres ds1 Brisa Erickson RN RN lp1 Bakari Mulligan RN RN jl7
--- NOTE | 2021-08-25 18:34 | EDPHYS ---
Physician Documentation [facility] Name: Sudha Sanchez Age: 65 yrs Sex: Female : 1955 Arrival Date: 08/25/2021 Time: 16:28 Bed Waiting Private MD: ED Physician Shahzad Bonilla HPI: 08/25 18:51 This 65 yrs old Female presents to ER via Wheelchair with complaints of Leg kb Pain. 18:51 The patient presents with pain, tenderness. The complaints affect the right knee. kb Context: The problem was sustained at home, resulted from an unknown cause, the patient can fully bear weight, the patient is able to ambulate. Onset: The symptoms/episode began/occurred 3 month(s) ago. Modifying factors: The symptoms are alleviated by nothing. the symptoms are aggravated by weight bearing, bending knee. Associated signs and symptoms: The patient has no apparent associated signs or symptoms. Treatment prior to arrival includes: no previous treatment. Severity of symptoms: At their worst the symptoms were mild, in the emergency department the symptoms are unchanged. The patient has not experienced similar symptoms in the past. The patient has not recently seen a physician. Pt reports right knee pain for 3 months, worse this week. States she had an injury to that knee about 2 years ago, but nothing recently.. Historical: - Allergies: 17:16 No Known Allergies; jl7 - PMHx: 17:16 Hypertension; jl7 - Immunization history:: Adult Immunizations unknown. - Social history:: Smoking status: unknown. ROS: 18:51 Constitutional: Negative for fever, chills, and weight loss. kb 18:51 MS/extremity: Positive for pain, tenderness, of the right knee. 18:51 All other systems are negative. Exam: 18:51 Constitutional: This is a well developed, well nourished patient who is awake, alert, kb and in no acute distress. Head/Face: Normocephalic, atraumatic. ENT: Moist Mucous membranes Respiratory: Respirations even and unlabored. No increased work of breathing. Talking in full sentences Skin: Warm, dry with normal turgor. Normal color. Neuro: Awake and alert, GCS 15, oriented to person, place, time, and situation. Moves all extremities. Normal gait. Psych: Awake, alert, with orientation to person, place and time. Behavior, mood, and affect are within normal limits. 18:51 Musculoskeletal/extremity: Extremities: grossly normal except: noted in the right knee: pain, ROM: intact in all extremities, Circulation is intact in all extremities. Sensation intact. Weight bearing: able to fully bear weight. Vital Signs: 17:15 BP 153 / 72; Pulse 70; Resp 17; Temp 97.5; Pulse Ox 98% ; Weight 83.91 kg; Height 5 ft. jl7 0 in. (152.40 cm); Pain 10/10; 17:15 Body Mass Index 36.13 (83.91 kg, 152.40 cm) jl7 MDM: 17:17 Patient medically screened. kb 18:50 Data reviewed: vital signs, nurses notes. Data interpreted: Pulse oximetry: on room air kb is 98 %. Interpretation: normal. Counseling: I had a detailed discussion with the patient and/or guardian regarding: the historical points, exam findings, and any diagnostic results supporting the discharge/admit diagnosis, radiology results, the need for outpatient follow up, a family practitioner, to return to the emergency department if symptoms worsen or persist or if there are any questions or concerns that arise at home. 08/25 17:17 Order name: Knee Right 3 View XRAY; Complete Time: 18:33 kb 08/25 18:33 Order name: Hemant Wrap kb Administered Medications: No medications were administered Disposition Summary: 08/25/21 18:34 Discharge Ordered Location: Home kb Condition: Stable kb Diagnosis - Pain in right knee kb Followup: kb - With: Emergency Department - When: As needed - Reason: Worsening of condition Followup: kb - With: Private Physician - When: 2 - 3 days - Reason: Recheck today's complaints, Continuance of care, Re-evaluation by your physician Discharge Instructions: - Discharge Summary Sheet kb - Musculoskeletal Pain kb - Chronic Knee Pain, Adult, [id number] kb Forms: - Medication Reconciliation Form kb - Thank You Letter kb - Antibiotic Education kb - Prescription Opioid Use kb Prescriptions: - Diclofenac Sodium 75 mg Oral tablet,delayed release (DR/EC) - take 1 tablet by ORAL route 2 times per day As needed; 30 tablet; Refills: 0, kb Product Selection Permitted Addendum: 08/30/2021 13:12 Co-signature as Attending Physician, Shahzad Bonilla MD I agree with the assessment and k dr plan of care. Signatures: Dispatcher [employer] Tomasa Dove, SOCIAL MEDIA STRATEGIST-C SOCIAL MEDIA STRATEGIST-Ckb Shahzad Bonilla MD MD [facility] Bakari Mulligan, RN RN jl7
[2021-08-25 21:24] VITALS: BP 153/72; TEMP 97.5; O2SAT 98
== END 2021-08-25 21:18 | disposition home or self-care (01) ==
LOC: ER 16:24
DX: M25.561 Pain in right knee (principal); I10 Essential (primary) hypertension
CPT/HCPCS: 99282

== ENCOUNTER 2024-07-02 13:33 | Observation (INO) | payer OTHER ==
--- NOTE | 2024-07-02 14:15 | RAD REPORT ---
EXAMINATION: ONE VIEW CHEST XR CLINICAL INDICATION: CHEST PAIN TECHNIQUE: Frontal chest projection is submitted. Examination is limited by patient positioning and t echnique. COMPARISON: 03/29/2019 FINDINGS: The lungs are well inflated and clear. The heart is normal in size. No displaced fractures identified . IMPRESSION: No acute intrathoracic abnormalities.
[2024-07-02] MEDS ORDERED: ASPIRIN 81 MG CHEWABLE TABLET ONE (14:34)
[2024-07-02 14:56] LABS: Absolute Lymphocytes (CBC) 1.1 K/uL (0.7-4.9); Absolute Monocytes 0.2 K/uL (0.1-1.3); Absolute Neutrophil 9.2 K/uL (1.8-8.0); Basophils % 0.2 % (0-1.3); Hematocrit 36.2 % (36.0-45.0); Hemoglobin 11.8 g/dL (12.0-15.0); Lymphocytes % 10.1 % (15.3-44.8); MCH 28.6 pg (27.0-35.0); MCHC 32.7 g/dL (32.0-36.0); MCV 87.6 fL (80-100); MPV 9.6 fL (7.6-11.3); Neutrophils % 87.7 % (41.7-73.7); Platelets 254 thou/uL (152-406); RBC Red Blood Cell Count 4.14 M/uL (3.86-4.86); Red Cell Distribution Width 15.3 % (12.1-15.2)
[2024-07-02 15:23] LABS: ALT/SGPT 18 U/L (13-56); Albumin 3.4 g/dL (3.4-5.0); Albumin/Globulin Ratio 0.8 (1.1-1.8); Alkaline Phosphatase 112 U/L (45-117); Anion Gap 12.2 mEq/L (5.0-15.0); BUN Blood Urea Nitrogen 21 mg/dL (7-18); Bicarbonate 22 mEq/L (21-32); Bilirubin Total 0.3 mg/dL (0.2-1.0); Globulin 4.3 g/dL (2.3-3.5); Glomerular Filtration Rate 59 ml/min (=/>90); Glucose Level 289 mg/dL (74-106); Magnesium 2.1 mg/dL (1.6-2.4); NT PRO-BNP 172 pg/mL (<125); Potassium 4.2 mEq/L (3.5-5.1); Protein, Total 7.7 g/dL (6.4-8.2); Sodium Level 137 mEq/L (136-145); Troponin High Sensitivity 4.2 pg/mL (<58.9)
[2024-07-02 15:29] LABS: AST/SGOT < 10 U/L (15-37); Bilirubin Direct < 0.2 mg/dL (0-0.2); Bilirubin Indirect, Calculated 0.1 mg/dL (0.2-0.8)
--- NOTE | 2024-07-02 15:33 | EDPHYS ---
Physician Documentation [facility] Name: Sudha Sanchez Age: 68 yrs Sex: Female : 1955 Arrival Date: 07/02/2024 Time: 13:33 Bed 19 Private MD: ED Physician Mike Narvaez HPI: 07/02 13:55 This 68 yrs old Female presents to ER via Wheelchair with complaints of Chest kb Pressure. 13:55 Pt is a 68 year old female who presents for left sided chest pressure that started 5 kb days ago with intermittent numb feeling to left shoulder and neck up to ear. No aggravating or alleviating factors. . Historical: - Allergies: 13:51 No Known Allergies; cm10 - PMHx: 13:51 Hypertension; Diabetes mellitus; Hypercholesterolemia; cm10 - Immunization history:: Adult Immunizations up to date. - Infectious Disease History:: Denies. - Social history:: Smoking status: Patient denies any tobacco usage or history of. ROS: 13:55 Constitutional: As per HPI kb Exam: 13:55 Constitutional: This is a well developed, well nourished patient who is awake, alert, kb and in no acute distress. Head/Face: Normocephalic, atraumatic. ENT: Moist Mucous membranes Cardiovascular: Regular rate Respiratory: Respirations even and unlabored. No increased work of breathing. Talking in full sentences Abdomen/GI: Soft, non-tender. No distention Skin: Warm, dry with normal turgor. Normal color. MS/ Extremity: Pulses equal, no cyanosis. Neurovascular intact. Full, normal range of motion. Neuro: Awake and alert, GCS 15, oriented to person, place, time, and situation. 13:55 ECG was reviewed by the Attending Physician. kb Vital Signs: 13:49 BP 138 / 55; Pulse 67; Resp 16; Temp 96.9(TE); Pulse Ox 100% ; Weight 83.91 kg; Height cm10 4 ft. 11 in. ; Pain 7/10; 16:00 BP 141 / 61; Pulse 65; Resp 16; Temp 98.9; Pulse Ox 100% ; bp 13:49 Body Mass Index 37.37 (83.91 kg, 149.86 cm) cm10 13:49 Pain Scale: Adult cm10 MDM: 13:44 Medical Screening Exam initiated kb 13:55 Data reviewed: vital signs, nurses notes. kb 15:31 Differential diagnosis: acute mi, arrhythmia. Consideration of Admission/Observation kb Patient was admitted/placed on observation. Escalation of care including admission/observation considered. Management of patient was discussed with the following: Hospitalist: Hospitalist team, pt accepted for admission under Dr Lemon. Historians other than the Patient: Daughter/Son: daughter. Counseling: I had a detailed discussion with the patient and/or guardian regarding the historical points, exam findings, and any diagnostic results supporting the discharge/admit diagnosis, lab results, radiology results, the need for further work-up and treatment in the hospital. 15:32 Care significantly affected by the following chronic conditions: Diabetes, kb Hypertension. ED course: HEART score 5. 07/02 14:01 Order name: Basic Metabolic Panel; Complete Time: 15:29 kb 07/02 14:01 Order name: CBC with Diff; Complete Time: 15:03 kb 07/02 14:01 Order name: LFT's; Complete Time: 15:29 kb 07/02 14:01 Order name: Magnesium; Complete Time: 15:29 kb 07/02 14:01 Order name: NT PRO-BNP; Complete Time: 15:29 kb 07/02 14:01 Order name: Troponin HS; Complete Time: 15:29 kb 07/02 16:20 Order name: T4 Free EDMS 07/02 16:20 Order name: Thyroid Stimulating Hormone EDMS 07/02 16:20 Order name: Urinalysis w/ reflexes EDMS 07/02 16:20 Order name: Basic Metabolic Panel EDMS 07/02 16:20 Order name: Basic Metabolic Panel EDMS 07/02 16:20 Order name: CBC with Automated Diff EDMS 07/02 16:20 Order name: CBC with Automated Diff EDMS 07/02 16:20 Order name: Hemoglobin A1c EDMS 07/02 16:20 Order name: Hemoglobin A1c EDMS 07/02 16:20 Order name: Lipid Profile EDMS 07/02 16:20 Order name: Lipid Profile EDMS 07/02 16:20 Order name: Magnesium EDMS 07/02 16:20 Order name: Magnesium EDMS 07/02 16:20 Order name: Phosphorus EDMS 07/02 16:20 Order name: Phosphorus EDMS 07/02 16:20 Order name: Troponin High Sensitivity EDMS 07/02 16:20 Order name: Troponin High Sensitivity EDMS 07/02 16:20 Order name: Troponin High Sensitivity EDMS 07/02 16:20 Order name: Troponin High Sensitivity EDDE 07/02 18:33 Order name: Glucose, Ancillary Testing; Complete Time: 18:35 EDMS 07/02 14:01 Order name: XRAY Chest (1 view); Complete Time: 14:19 kb 07/02 16:20 Order name: Echo with Doppler EDMS 07/02 14:01 Order name: EKG; Complete Time: 14:01 kb 07/02 14:01 Order name: Cardiac monitoring; Complete Time: 14:20 kb 07/02 14:01 Order name: EKG - Nurse/Tech; Complete Time: 14:20 kb 07/02 14:01 Order name: IV Saline Lock; Complete Time: 14:40 kb 07/02 14:01 Order name: Labs collected and sent; Complete Time: 14:40 kb 07/02 14:01 Order name: O2 Per Protocol; Complete Time: 14:20 kb 07/02 14:01 Order name: O2 Sat Monitoring; Complete Time: 14:20 kb EC:55 Rate is 70 beats/min. Rhythm is regular. QRS Johnston is Normal. MO interval is normal at kb 164 msec. QRS interval is normal at 74 msec. QT interval is normal at 406 msec. Administered Medications: 14:15 Drug: Aspirin PO Chewable Tablet 324 mg PO once; 81 mg tablets x 4 Route: PO; bp 16:45 Follow up: Response: No adverse reaction bp Disposition: 07/03 07:43 Co-signature as Attending Physician, Mike Narvaez MD I reviewed the patient's care rn provided by the Advanced Practice Provider and agree with the diagnosis and treatment plan. Disposition Summary: 07/02/24 15:33 Hospitalization Ordered Notes: Hospitalization Status: Observation kb Location: Telemetry/MedSurg (observation) kb Condition: Stable kb Problem: new kb Symptoms: are unchanged kb Bed/Room Type: Standard kb Provider: Willian Lemon(07/02/24 15:35) kb Room Assignment: 222(07/02/24 16:29) bd Diagnosis - Chest pain, unspecified kb Forms: - Medication Reconciliation Form kb - SBAR form kb - Leadership Thank You Letter kb Signatures: Dispatcher [employer] Tomasa Dove FNP-C POT PULLER-Ckb Darline Messina Roman, MD MD rn Peltier, Brian, RN RN Ilsa Morrison, GWEN RN cm10 Corrections: (The following items were deleted from the chart) 07/02 14:01 14:01 BASIC METABOLIC PANEL+C.LAB.BRZ ordered. EDMS EDMS 14:01 14:01 CBC+H.LAB.BRZ ordered. EDMS EDMS 14:01 14:01 HEPATIC FUNCTION+C.LAB.BRZ ordered. EDMS EDMS 14:01 14:01 MAGNESIUM+C.LAB.BRZ ordered. EDMS EDMS 14:01 14:01 PROBNP+C.LAB.BRZ ordered. EDMS EDMS 14:01 14:01 Troponin High Sensitivity+C.LAB.BRZ ordered. EDMS EDMS 15:35 15:33 Alfonzo Wang kb kb 15:36 15:31 Management of patient was discussed with the following: Hospitalist: CLARICE Yarbrough kb accepts pt for admission under Dr Wang. kb 16:29 15:33 kb bd
--- NOTE | 2024-07-02 15:33 | ER ---
Nurse's Notes [facility] Name: Sudha Sanchez Age: 68 yrs Sex: Female : 1955 Arrival Date: 07/02/2024 Time: 13:33 Bed 19 Private MD: Diagnosis: Chest pain, unspecified Presentation: 07/02 13:49 Chief complaint: Patient states: Chest pressure onset Sunday. Pt states that the cm10 pressure is to the left side of her chest with some numbness to her left arm. Coronavirus screen: Client denies travel out of the [place] in the last 14 days. Ebola Screen: Patient denies travel to an Ebola-affected area in the 21 days before illness onset. No symptoms or risks identified at this time. Initial Sepsis Screen: Does the patient meet any 2 criteria? No. Patient's initial sepsis screen is negative. Does the patient have a suspected source of infection? No. Patient's initial sepsis screen is negative. Risk Assessment: Do you want to hurt yourself or someone else? Patient reports no desire to harm self or others. Onset of symptoms was June 28, 2024. 13:49 Method Of Arrival: Wheelchair cm10 13:49 Acuity: MINH 2 cm10 Triage Assessment: 13:51 General: Appears in no apparent distress. comfortable, Behavior is. Pain: Complains of cm10 pain in chest Pain radiates to left arm Pain currently is 7 out of 10 on a pain scale. Quality of pain is described as pressure. Neuro: No deficits noted. Level of Consciousness is awake, alert, obeys commands, Oriented to person, place, time, situation, Appropriate for age. Respiratory: No deficits noted. Airway is patent Respiratory effort is even, unlabored, Respiratory pattern is regular, symmetrical. Historical: - Allergies: 13:51 No Known Allergies; cm10 - PMHx: 13:51 Hypertension; Diabetes mellitus; Hypercholesterolemia; cm10 - Immunization history:: Adult Immunizations up to date. - Infectious Disease History:: Denies. - Social history:: Smoking status: Patient denies any tobacco usage or history of. Screenin:45 [facility] ED Fall Risk Assessment (Adult) History of falling in the last 3 months, bp including since admission No falls in past 3 months (0 pts) Confusion or Disorientation No (0 pts) Intoxicated or Sedated No (0 pts) Impaired Gait No (0 pts) Mobility Assist Device Used No (0 pt) Altered Elimination No (0 pt) Score/Fall Risk Level 0 - 2 = Low Risk. Abuse screen: Denies threats or abuse. Denies injuries from another. Nutritional screening: No deficits noted. Tuberculosis screening: No symptoms or risk factors identified. Assessment: 14:00 General: Appears in no apparent distress. Behavior is calm, cooperative, appropriate bp for age. Pain: Complains of pain in chest Pain began 1 day ago. Neuro: No deficits noted. Cardiovascular: Reports chest pain. Respiratory: No deficits noted. GI: No signs and/or symptoms were reported involving the gastrointestinal system. : No signs and/or symptoms were reported regarding the genitourinary system. EENT: No deficits noted. Derm: No deficits noted. Musculoskeletal: No deficits noted. 16:30 Reassessment: Patient appears in no apparent distress at this time. Patient is alert, bp oriented x 3, equal unlabored respirations, skin warm/dry/pink. 16:45 Reassessment: REPORT FAXED 222. bp Vital Signs: 13:49 BP 138 / 55; Pulse 67; Resp 16; Temp 96.9(TE); Pulse Ox 100% ; Weight 83.91 kg; Height cm10 4 ft. 11 in. ; Pain 7/10; 16:00 BP 141 / 61; Pulse 65; Resp 16; Temp 98.9; Pulse Ox 100% ; bp 13:49 Body Mass Index 37.37 (83.91 kg, 149.86 cm) cm10 13:49 Pain Scale: Adult cm10 ED Course: 13:35 Patient arrived in ED. ra3 13:44 Tomasa Boateng [facility]NP-C [facility]. kb 13:44 Mike Narvaez MD is Attending Physician. kb 13:51 Triage completed. cm10 13:52 Arm band placed on left wrist. Patient placed in waiting room. EKG completed in triage. cm10 Results shown to MD. 13:52 EKG done, by ED staff, reviewed by Tomasa PRIDE. cm10 14:13 XRAY Chest (1 view) In Process Unspecified. EDMS 14:18 Patient placed in an exam room, on a stretcher. ll1 14:19 Venkata Oliver, GWEN is Primary Nurse. bp 14:40 Initial lab(s) drawn, by me, sent to lab. Inserted saline lock: 22 gauge in right bp forearm, using aseptic technique. Blood collected. Flushed with 10 mL NS. Patient maintains SpO2 saturation greater than 95% on room air. 15:33 Alfonzo Wang MD is Hospitalizing Provider. kb 15:35 Willian Lemon is Hospitalizing Provider. kb 16:38 1638 CM attempted initial assessment, patient ambulating to restroom. 1641 CM met with ane patient and her daughter Brittany at the bedside in the ED exam room. Patient's preferred language is Iraqi. Patient identified by name and . Prior to admission, patient reports she performs ADLs independently without use of assistive devices. NO DME in the home. No HH, no home oxygen or other medical services at this time. No MPOA in place at this time. Patient's PCP is Dr. Kizzy Leyva. Patient's preferred plan is to return home upon discharge. Laurel states she will transport patient home. CM team will continue to follow and coordinate care during this hospital stay. 16:45 Patient has correct armband on for positive identification. Provided Education on: N/A. bp Client placed on continuous cardiac and pulse oximetry monitoring. NIBP monitoring applied. enamel dipper on. Pulse ox on. NIBP on. 16:45 No provider procedures requiring assistance completed. Patient admitted, IV remains in bp place. Administered Medications: 14:15 Drug: Aspirin PO Chewable Tablet 324 mg PO once; 81 mg tablets x 4 Route: PO; bp 16:45 Follow up: Response: No adverse reaction bp Medication: 16:45 VIS not applicable for this client. bp Outcome: 15:33 Decision to Hospitalize by Provider. kb 16:45 Admitted to Med/surg accompanied by tech, via wheelchair, room 222, bp 16:45 Condition: stable 16:45 Instructed on the need for admit, 18:35 Patient left the ED. bp Signatures: Dispatcher [employer] EDMS Tomasa Boateng, BIGG FRYE-Venkata May, RN RN Guillermo Hull RN RN ll1 Ilsa Montano RN RN cm10 Rebecca Silver 3 Corinne Alonso RN RN ane
--- NOTE | 2024-07-02 15:52 | P.HP ---
Certification for Inpatient Patient admitted to: Observation With expected LOS: <2 Midnights Patient will require the following post-hospital care: None Practitioner: I am a practitioner with admitting privileges, knowledge of patient current condition, hospital course, and medical plan of care. Services: Services provided to patient in accordance with Admission requirements found in Title 42 Section 412.3 of the Code of Federal Regulations Patient History Date of Service: 07/03/24 Reason for admission: Chest pain rule out ACS History of Present Illness: Sudha Sanchez is a 68 year old female with Pmhx hypertension, diabetes mellitus, hypercholesterolemia who presents to the ED with chief complaint of left-sided chest pressure that started 5 days ago with intermittent numb feeling to left shoulder and neck up to the ear. Chest x-ray reports No acute intrathoracic abnormalities. No significant abnormal labs. Daughter is at the bedside and reports her mother saw Dr. Black this summer and received a full workup including a stress test with good results. She also reports her mother has been under a lot of stress recently and prior to this chest pain/pressure episode. Initial vitals BP 138 / 55; Pulse 67; Resp 16; Temp 96.9(TE); Pulse Ox 100% EKG Rate is 70 beats/min. Rhythm is regular. QRS [place] is Normal. [place] interval is normal at 164 msec. QRS interval is normal at 74 msec. QT interval is normal at 406 msec. Sudha will be admitted to hospitalist service for further evaluation of chest pain/pressure r/o ACS, Cardiology consulted. Allergies No Known Allergies Allergy (Unverified 09/19/12 22:57) Home Medications: Aspirin [Aspirin EC 81 MG] 81 mg PO DAILY 30 Days #30 tab 07/03/24 Atorvastatin Calcium [Lipitor] 40 mg PO BEDTIME 30 Days #30 tab 07/03/24 Trazodone [Desyrel*] 150 mg PO BEDTIME 30 Days #30 tab 07/03/24 - Past Medical/Surgical History -: Hypertension -: Diabetes mellitus -: Hypercholesterolemia Past Surgical History: Reviewed- Non-Contributory - Social History Smoking Status: Never smoker Alcohol use: No CD- Drugs: No Physical Examination - Studies Laboratory Data (last 24 hrs) 07/02/24 07/02/24 14:40 14:40 WBC 10.60 Hgb 11.8 L Hct 36.2 Plt Count 254 Sodium 137 Potassium 4.2 BUN 21 H Creatinine 1.02 Glucose 289 H Magnesium 2.1 Total Bilirubin 0.3 AST < 10 L ALT 18 Alkaline Phosphatase 112 Assessment and Plan - Plan Assessment and plan Chest pain/pressure rule out ACS - Left chest pain radiating up left neck to left ear - EKG: No obvious ST segment changes, trend - troponin 4.2, Serial pending - Ordered transthoracic echocardiogram - chest x-ray reports No acute intrathoracic abnormalities - Consult Cardiology - recommendations appreciated - S/P aspirin 324 mg PO x 1 in ED - Start daily baby aspirin and statin - Symptom control with PRN acetaminophen, nitroglycerin, morphine - continuous telemetry -TSH/FreeT4, A1C, lipid panel in the AM Diabetes mellitus with hyperglycemia -Serum glucose 289 -Accu-Chek sliding scale insulin -A1c in a.m. Hypertension Hypercholesterolemia -Continue home medications DVT ppx SCD full code LOS 24 hour obs Discharge Plan: Home Plan to discharge in: 24 Hours - Advance Directives Does patient have a Living Will: No Does patient have a Durable POA for Healthcare: No
[2024-07-02] MEDS ORDERED: NITROGLYCERIN 0.4 MG/TAB SL PRN (16:12)
[2024-07-02] MEDS ORDERED: MORPHINE 2 MG/ML SYR IV PRN (16:12)
[2024-07-02] MEDS ORDERED: ACETAMINOPHEN 325 MG TABLET PO PRN (16:12)
[2024-07-02] MEDS: INSULIN REGULAR (HUMAN) 100 UNIT/ML SQ SCH (16:30)
[2024-07-02] MEDS: NA CHLORIDE 0.9% 1,000 ML IV SCH (18:26)
[2024-07-02 19:19] VITALS: O2SAT 100
[2024-07-02] MEDS: ATORVASTATIN 40 MG TAB PO SCH (21:16)
[2024-07-02 21:39] VITALS: BMI 37.3
[2024-07-03 04:41] LABS: Absolute Monocytes 0.6 K/uL (0.1-1.3); Absolute Neutrophil 7.1 K/uL (1.8-8.0); Hematocrit 34.2 % (36.0-45.0); Hemoglobin 11.3 g/dL (12.0-15.0); Lymphocytes % 20.5 % (15.3-44.8); MCH 28.8 pg (27.0-35.0); MCHC 33.1 g/dL (32.0-36.0); MCV 86.9 fL (80-100); MPV 9.4 fL (7.6-11.3); Monocytes % 6.4 % (3.3-12.3); Neutrophils % 73.1 % (41.7-73.7); Platelets 235 thou/uL (152-406); RBC Red Blood Cell Count 3.94 M/uL (3.86-4.86); Red Cell Distribution Width 15.2 % (12.1-15.2)
[2024-07-03 05:06] LABS: Anion Gap 7.9 mEq/L (5.0-15.0); Magnesium 2.1 mg/dL (1.6-2.4); Phosphorus 3.3 mg/dL (2.5-4.9); Potassium 3.9 mEq/L (3.5-5.1); Thyroid Stimulating Hormone 0.37 uIU/mL (0.358-3.740)
[2024-07-03] MEDS ORDERED: HYDRALAZINE HCL 20 MG/ML VIAL IV PRN (07:03)
[2024-07-03] MEDS: ASPIRIN EC 81 MG TAB PO SCH (08:00)
--- NOTE | 2024-07-03 10:21 | P.CNS ---
Date of Consult: 07/03/24 Chief Complaint: Chest pain rule out ACS History of Present Illness: Patient with PMH of HTN, HLD presented with chest pain, id chest started yesterday, no other cardiac symptoms. Allergies No Known Allergies Allergy (Unverified 09/19/12 22:57) Home medications list reviewed: Yes - Past Medical/Surgical History Diabetic: Yes -: Hypertension -: Diabetes mellitus -: Hypercholesterolemia - Social History Smoking Status: Unknown if ever smoked Alcohol use: No CD- Drugs: No Place of Residence: Home Review of Systems 10-point ROS is otherwise unremarkable Physical Examination Temp Pulse Resp BP Pulse Ox 97.8 F 53 16 105/44 L 93 07/03/24 08:00 07/03/24 08:00 07/03/24 08:00 07/03/24 08:00 07/03/24 08:00 General: Alert, In no apparent distress HEENT: Atraumatic, PERRLA, Mucous membr. moist/pink, EOMI, Sclerae nonicteric Neck: Supple, 2+ carotid pulse no bruit, No LAD, Without JVD or thyroid abnormality Respiratory: Clear to auscultation bilaterally, Normal air movement Cardiovascular: Regular rate/rhythm, Normal S1 S2 Gastrointestinal: Normal bowel sounds, No tenderness Musculoskeletal: No tenderness Integumentary: No rashes Neurological: Normal gait, Normal speech, Normal tone, Normal affect Lymphatics: No axilla or inguinal lymphadenopathy Laboratory Data (last 24 hrs) 07/02/24 07/02/24 14:40 14:40 WBC 10.60 Hgb 11.8 L Hct 36.2 Plt Count 254 Sodium 137 Potassium 4.2 BUN 21 H Creatinine 1.02 Glucose 289 H Magnesium 2.1 Total Bilirubin 0.3 AST < 10 L ALT 18 Alkaline Phosphatase 112 - Problems (1) Chest pain Current Visit: Yes Status: Acute Plan: RAMAN, reproducible on exam, has been working alot and under high stress Troponin negative x 3 Patient had a stress test and echo in cardiology clinic recently that were negative. no further cardiac work up needed. (2) HTN (hypertension) Current Visit: Yes Status: Acute Plan: continue patient home medications (3) HLD (hyperlipidemia) Current Visit: Yes Status: Acute Plan: continue lipitor 40 mg daily
--- NOTE | 2024-07-03 11:08 | P.DS ---
Admission Date: 07/02/24 Discharge Date: 07/03/24 Disposition: ROUTINE DISCHARGE Discharge Condition: GOOD Reason for Admission: Chest pain rule out ACS Brief History of Present Illness: Diagnosis Chest pain/pressure ruled out ACS Diabetes mellitus with hyperglycemia Hypertension Hypercholesterolemia HPI 07/02/2024 Sudha Sanchez is a 68 year old female with Pmhx hypertension, diabetes mellitus, hypercholesterolemia who presents to the ED with chief complaint of left-sided chest pressure that started 5 days ago with intermittent numb feeling to left shoulder and neck up to the ear. Chest x-ray reports No acute intrathoracic abnormalities. No significant abnormal labs. Daughter is at the bedside and reports her mother saw Dr. Black this summer and received a full workup including a stress test with good results. She also reports her mother has been under a lot of stress recently and prior to this chest pain/pressure episode. Initial vitals BP 138 / 55; Pulse 67; Resp 16; Temp 96.9(TE); Pulse Ox 100% EKG Rate is 70 beats/min. Rhythm is regular. QRS [place] is Normal. MT interval is normal at 164 msec. QRS interval is normal at 74 msec. QT interval is normal at 406 msec. Sudha will be admitted to hospitalist service for further evaluation of chest pain/pressure r/o ACS, Cardiology consulted. Hospital Course: Sudha Sanchez is a pleasant 68 year old female with a past medical history significant for hypertension, diabetes mellitus, hypercholesterolemia who was admitted to the [facility] on 07/02/24 for chest pain/pressure. Sudha presented to the ED with chief complaint of chest pressure/pain for 5 days with intermittent numb feeling to the left shoulder and neck up to her ear. She reports seeing Dr. Black who did a full workup this summer. During this admission, echocardiogram was performed showing mild mitral and tricuspid regurgitation with a normal EF of 52% as well as a grade 1 diastolic dysfunction. Cardiology was consulted and cleared her for discharge based on musculoskeletal pain, troponins negative x 3, and outpatient stress test negative. She will follow-up with Dr. Black outpatient for further evaluation. Blood sugar was elevated but responded well to insulin, A1C 6.4, she will follow up with her PCP for further management. On evaluation prior to discharge, she reports chest pain and pressure has resolved. Her daughter at the bedside reports she has been under some stress recently which correlates with onset of her chest pain/pressure. On 07/03/24, Sudha was seen on morning rounds and deemed medically stable for discharge. Sudha was discharged with instructions to schedule follow-up appointments with PCP and Dr. Black. Sudha was provided prescriptions for aspirin, Lipitor, trazodone. Physical Exam: General: Alert and oriented x3, NAD HEENT: Atraumatic, Normocephalic, PERRLA Neck: 2+ carotid pulse no bruit, JVD not distended Respiratory: Clear to auscultation bilaterally, nonlabored breathing, on RA Cardiovascular: RRR, Normal S1 S2 present Capillary refill: <2 Seconds Gastrointestinal: Normal bowel sounds, Soft and benign on palpation Musculoskeletal: 2+ peripheral pulses Integumentary: no rash Neurological: Grossly afoccal Vital Signs/Physical Exam: Temp Pulse Resp BP Pulse Ox 97.8 F 53 16 105/44 L 93 07/03/24 08:00 07/03/24 08:00 07/03/24 08:00 07/03/24 08:00 07/03/24 08:00 Laboratory Data at Discharge: WBC 9.70 thou/uL (4.3-10.9) 07/03/24 04:09 Hgb 11.3 g/dL (12.0-15.0) L 07/03/24 04:09 Hct 34.2 % (36.0-45.0) L 07/03/24 04:09 Plt Count 235 thou/uL (152-406) 07/03/24 04:09 Sodium 139 mEq/L (136-145) 07/03/24 04:09 Potassium 3.9 mEq/L (3.5-5.1) 07/03/24 04:09 BUN 21 mg/dL (7-18) H 07/03/24 04:09 Creatinine 0.71 mg/dL (0.55-1.02) 07/03/24 04:09 Glucose 144 mg/dL (74-106) H 07/03/24 04:09 Phosphorus 3.3 mg/dL (2.5-4.9) 07/03/24 04:09 Magnesium 2.1 mg/dL (1.6-2.4) 07/03/24 04:09 Total Bilirubin 0.3 mg/dL (0.2-1.0) 07/02/24 14:40 AST < 10 U/L (15-37) L 07/02/24 14:40 ALT 18 U/L (13-56) 07/02/24 14:40 Alkaline Phosphatase 112 U/L (45-117) 07/02/24 14:40 Triglycerides 109 mg/dL (<150) 07/03/24 04:09 Cholesterol 143 mg/dL (<200) 07/03/24 04:09 HDL Cholesterol 72 mg/dL (40-60) H 07/03/24 04:09 Cholesterol/HDL Ratio 1.99 07/03/24 04:09 Home Medications: Aspirin [Aspirin EC 81 MG] 81 mg PO DAILY 30 Days #30 tab 07/03/24 Atorvastatin Calcium [Lipitor] 40 mg PO BEDTIME 30 Days #30 tab 07/03/24 Trazodone [Desyrel*] 150 mg PO BEDTIME 30 Days #30 tab 07/03/24 New Medications: Aspirin [Aspirin EC 81 MG] 81 mg PO DAILY 30 Days #30 tab Trazodone [Desyrel*] 150 mg PO BEDTIME 30 Days #30 tab Atorvastatin Calcium [Lipitor] 40 mg PO BEDTIME 30 Days #30 tab Physician Discharge Instructions: 1. Please call and schedule a follow-up appointment with your PCP in 3-5 days - Please follow-up with your PCP for medication refills/adjustments 2. Please call and schedule a follow-up appointment with Dr. Black in 2 weeks 3. Continue heart healthy diet 4. No activity restrictions 5. Return to the ED if symptoms worsen New medications Aspirin 81 mg daily trazodone 150 mg at bedtime, this will help relieve stress and allow sleep atorvastatin 40 mg daily Diet: AHA Activity: Ad horacio Followup: Rashi Black MD [ACTIVE - CAN ADMIT] - 1-2 Weeks Kizzy Leyva MD [Primary Care Provider] - 1-2 Weeks
--- NOTE | 2024-07-03 11:09 | EKG ---
Test Date: 2024-07-02 Test Time: 13:47:47 Pulp Operator: IDANIA MEASUREMENT RESULTS: Intervals: Rate: 70 MT: 164 QRSD: 74 QT: 376 QTc: 406 [place]: P: 63 MT: 164 QRS: 46 T: 61 INTERPRETIVE STATEMENTS: Normal sinus rhythm Normal ECG Compared to ECG 03/29/2019 22:29:15 T-wave abnormality no longer present Electronically Signed On 07-03-24 11:07:44 CDT by Serafin Smith
[2024-07-03 13:15] VITALS: BP 127/54; TEMP 97.6
--- NOTE | 2024-07-04 14:48 | ECHO ---
HEIGHT: 4 ft 11 in WEIGHT: 184 lb 15.838 oz DATE OF STUDY: 07/03/[address]: Radha Carrillo NP 2-DIMENSIONAL: YES M.MODE: YES DOPPLER: YES COLOR FLOW: YES TDS: PORTABLE: YES DEFINITY: BUBBLE STUDY: DIAGNOSIS: CHEST PAIN CARDIAC HISTORY: CATHERIZATION: NO SURGERY: NO PROSTHETIC VALVE: NO PACEMAKER: NO MEASUREMENTS (cm) DIASTOLIC (NORMALS) SYSTOLIC (NORMALS) IVSd 1.0 (0.6-1.2) LA Diam 2.6 (1.9-4.0) LVEF 52% LVIDd 3.6 (3.5-5.7) LVIDs 2.7 (2.0-3.5) %FS 26% LVPWd 1.1 (0.6-1.2) Ao Diam 2.5 (2.0-3.7) 2 DIMENSIONAL ASSESSMENT: RIGHT ATRIUM: NORMAL LEFT ATRIUM: NORMAL RIGHT VENTRICLE: NORMAL LEFT VENTRICLE: NORMAL TRICUSPID VALVE: MILD TRICUSPID REGURGITATION MITRAL VALVE: MILD MITRAL REGURGITATION PULMONIC VALVE: NORMAL AORTIC VALVE: NORMAL PERICARDIAL EFFUSION: NONE AORTIC ROOT: NORMAL LEFT VENTRICULAR WALL MOTION: NORMAL DOPPLER/COLOR FLOW: SEE BELOW COMMENTS: 1. NORMAL LEFT VENTRICULAR EJECTION FRACTION 55-60% WITH NORMAL WALL MOTION 2. GRADE I DIASTOLIC DYSFUNCTION 3. MILD MITRAL REGURGITATION 4. MILD TRICUSPID REGURGITATION TECHNOLOGIST: ELVIA ANDREWS
== END 2024-07-03 14:00 | disposition home or self-care (01) ==
LOC: ER 13:33 → ERHOLD 16:12 → 2ND 16:51
PROVIDERS: ADMIT Internal Medicine; ATTEND Internal Medicine
DX: R07.9 Chest pain, unspecified (principal); I10 Essential (primary) hypertension; E11.65 Type 2 diabetes mellitus with hyperglycemia; F43.9 Reaction to severe stress, unspecified
CPT/HCPCS: 93005; 93306; 85025 ×2; 80048 ×2; 36415; 83735 ×2; 84100; 80061; 82947 ×4; 80076; 84443; 83036; 84484 ×2; 84439; 83880; 71045; 99285; J7030; G0378 ×3